=== PATIENT | male | born 1955 | race Caucasian/White ===

== ENCOUNTER 2016-07-04 16:02 | Inpatient (IN) | payer OTHER ==
[~2016-07-04] VITALS: Ht 170.2 cm; Wt 54.4 kg
--- NOTE | ~2016-07-04 | PR ---
[place], [place] PROGRESS NOTE NAME: TAYLOR HOLT UNIT #: [id number] ROOM: 405 DOCTOR: SPEEDY GONZALES MD BIRTHDATE: [birth year] DOS: 07/07/2016 SUBJECTIVE: The patient was seen and examined. He is awake and alert. He is in no acute distress. He states he feels well. He denied any complaints. I was called by the nurse this morning about his blood pressure as well as IV fluids and gave instructions to stop IV fluids and give clonidine p.r.n. Most recent blood pressure seemed better controlled. PHYSICAL EXAMINATION: VITAL SIGNS: Showed temperature 98.1, pulse 54, respiratory rate 20, blood pressure 135/78. HEENT: Shows no JDV. LUNGS: Clear. HEART: Normal S1, S2. No rub, thrill, or gallop. ABDOMEN: Soft, nontender. There is no organomegaly. EXTREMITIES: Showed no edema. SKIN: Showed no rash. LABORATORY DATA: A 24-hour urine collection was completed. Creatinine clearance was 21.2 mL per minute. Total volume was 3775 mL. Serum creatinine from today was 2.47. IMPRESSION AND PLAN: 1. Chronic kidney disease. The patient previously has been on dialysis; however, seems to have had improvement in renal function. His 24-hour urine collection places him at stage IV chronic kidney disease with excellent urine output. At this time, I did not think the patient should continue dialysis. He has compliance issues as well and has not had dialysis essentially in 1 week's time. I explained to him, he does not need to come to dialysis, but he will need to be followed up in the [facility] with Dr. Camp. The patient agreed to this plan and was very happy. I did notify the dialysis unit that he will no longer be needing dialysis at this time. 2. Hypertension. Continue medications. This seems to be better controlled. 3. Anemia. H and H is acceptable. The patient does not require erythropoietin stimulating agents at this time. 4. From a renal standpoint, the patient is acceptable for discharge. Again, he should follow up in our office with Dr. Camp in 1-2 weeks after discharge. [place], [place] PROGRESS NOTE NAME: TAYLOR HOLT UNIT #: [id number] ROOM: 405 DOCTOR: SPEEDY GONZALES MD BIRTHDATE: [birth year] SPEEDY GONZALES MD CM:PNTRANS 1427 0025 SPEEDY GONZALES MD 07/08/16 0025 interface
--- NOTE | ~2016-07-04 | CON ---
[place], [place] REPORT OF CONSULTATION NAME: TAYLOR HOLT UNIT #: [id number] ROOM: 405 DOCTOR: SPEEDY GONZALES MD BIRTHDATE: [birth year] DOS: 07/05/2016 REASON FOR CONSULTATION: Management of dialysis/patient known to you. HISTORY OF PRESENT ILLNESS: This patient is a 61-year-old male who has a past medical history of end-stage renal disease, on hemodialysis Thursday, and Thursday at the [facility]. The patient is noncompliant. He was seen by our practice of [facility]. He has not had dialysis for about a week now apparently. It seems he was in his PCP's office and had a questionable syncopal episode. Apparently, he was drinking when he was in the office, smelled of alcohol, but I do not know the details. He was admitted for further evaluation. Apparently, the patient has been making urine. When had seen him, he was awake and alert, stated he felt well and had no complaints to me. He denied nausea, vomiting, diarrhea or shortness breath or chest pain. His significant other was in the room and apparently they were fighting before I went into the room. Security actually was en route to coming the room before I went in there. He appeared to be very calm, when I saw him. ALLERGIES: No known drug allergies. HOME MEDICATIONS: Included amlodipine, Coreg, Celexa, clonidine, Neurontin, hydralazine, meclizine, nicotine, Protonix, sodium bicarbonate, Restoril. PAST MEDICAL HISTORY: 1. End-stage renal disease, on hemodialysis Thursday, , Thursday. Details of this are not clear to me. It seems he has had stevv-bh-ilzogoo kidney injury and has been noncompliant. It seems he has been to dialysis center for quite some time now. 2. History of alcohol abuse. 3. Anemia. 4. C. diff colitis. 5. CHF. 6. Depression. 7. Chronic hyponatremia. 8. Esophageal cancer. 9. Depression. 10. Hepatitis C. 11. History of TIA. 12. Hypertension. 13. Multiple falls. 14. Peptic ulcer disease. 15. Pneumonia. 16. Appendectomy. 17. Cholecystectomy. 18. Partial gastrectomy. 19. Splenectomy. 20. Neck surgery. 21. Noncompliance. FAMILY HISTORY: Negative for chronic kidney disease, otherwise noncontributory. [place], [place] REPORT OF CONSULTATION NAME: TAYLOR HOLT UNIT #: [id number] ROOM: 405 DOCTOR: SPEEDY GONZALES MD BIRTHDATE: [birth year] SOCIAL HISTORY: The patient has a history of alcohol abuse as well as tobacco abuse. I am not clear if he has IV drug history. REVIEW OF SYSTEMS: As per HPI, otherwise a 10-point review of systems was reviewed and was negative. PHYSICAL EXAMINATION: VITAL SIGNS: Temperature is 97.9, pulse 54, respiratory rate 20, blood pressure 145/87. GENERAL: He is awake and alert, resting comfortably, in no acute distress. HEENT: Shows no JVD. Sclerae are anicteric. Mucous membranes are moist. Pharynx is clear. NECK: Supple. Trachea is midline. No neck lymphadenopathy. There is no thyromegaly. LUNGS: Diminished breath sounds. No appreciable wheezes. No tactile fremitus. He is not using accessory muscles of respiration. HEART: Normal S1, S2. No rub, no thrill, no gallop. ABDOMEN: Soft and nontender. There is no organomegaly or rigidity. There is no rebound or guarding. There is no CVA tenderness. EXTREMITIES: Showed no edema. There is no lower extremity lymphadenopathy. Distal pulses are 2+. SKIN: Showed no overt rash. There are no petechiae or purpura. Skin temperature is warm. NEUROLOGIC: He is awake, alert and following commands. Cranial nerves are intact. LABORATORY DATA: From yesterday showed a BUN of 24, creatinine of 2.6, sodium 129, potassium 4.1, CO2 of 21, calcium 8.1, albumin 3.0. IMPRESSION: 1. End-stage renal disease, on hemodialysis Thursday, and Thursday. 2. Questionable syncopal episode. 3. History of tobacco and alcohol abuse. 4. History of esophageal cancer. 5. Anemia. 6. Hypertension. 7. Noncompliance. PLAN: 1. We will obtain a 24-hour urine for creatinine clearance while the patient is in the hospital. He has not had dialysis in a week and labs were acceptable. He appears well compensated. 2. Watch sodium levels. 3. Continue regular meds. 4. Dose meds for current creatinine clearance. 5. The patient can be discharged from a renal standpoint once his 24-hour urine question has completed if he is otherwise stable. Thank you for this consultation. We will follow with you. [place], [place] REPORT OF CONSULTATION NAME: TAYLOR HOLT UNIT #: [id number] ROOM: 405 DOCTOR: CHRISTIAN ESTRADA,SPEEDY Tomas BIRTHDATE: [birth year] SPEEDY GONZALES MD CM:CONSTR:REPORT OF CONSULTATION 1528 07/06/16 1008 interface
--- NOTE | ~2016-07-04 | EKG ---
[place], [place] ELECTROCARDIOGRAM REPORT NAME: TAYLOR HOLT UNIT #: [id number] ROOM: 405 DOCTOR: ISABEL MORENO MD BIRTHDATE: [birth year] DOS: 07/08/2016 TIME: 16:49:33 RATE AND RHYTHM: Normal sinus rhythm at 60 beats per minute. MA interval 187 milliseconds. QRS duration 91 milliseconds, corrected QT interval is 530 milliseconds. QRS axis is 4. IMPRESSION: 1. Normal sinus rhythm. 2. Prolonged QT interval. 3. Ventricular premature complexes. IMPRESSION: 1. Abnormal EKG. 2. Clinical correlation needed. ISABEL MORENO MD CM:EKGRPT:ELECTROCARDIOGRAM REPORT 1209 1229 ISABEL MORENO MD
[~2016-07-04 16:02] MED LIST: AMLODIPINE BESY1 TAB PO; ANTIVERT/2525 MG PO; APRESOLINE25 MG PO; ASPIR 8181 MG PO; ATARAX,VISTARIL50 MG PO; B COMPLEX WITH1 EACH PO; CARAFATE1 G1 PO; CELEXA20 MG PO; CEPHALEXIN500 M1 PO; CIPRO500 MG PO; CLINDAMYCIN HC300 MG PO; CLONIDINE0.1 MG PO; COREG12.5 MG PO; COREG25 MG PO; COREG3.125 MG PO; FERROUS GLUCON325 M1 PO; FERROUS SULFAT325 M1 PO; FERROUS SULFAT325 MG PO; FLOMAX0.4 MG PO; HABITROL21 MG/24 H TD; HYDR25T PO; HYDRALAZINE HCL50 MG PO; HYDRALAZINE HYD50 MG PO; HYDROCHLOROTHIA25 M1 PO; HYDROCODON-ACETAMINO; HYDROCODONE BIT1 T11 PO; HYDROCODONE BIT1 T20 PO; HYDROXYZINE HCL50 MG PO; IBUPROFEN600 MG PO; KLOR-CON 1010 ME1 PO; KROGER NIC21 MG/24 H T; LASIX20 MG PO; LASIX40 MG PO; LISINOPRIL AND1 TA2 PO; LISINOPRIL20 MG PO; LISINOPRIL40 MG PO; LOPRESSOR25 MG PO; METOPROLOL SUCC25 M2 PO; MOTRIN400 MG PO; NATURE'S BLEND100 M2 PO; NEURONTIN100 MG PO; NICODERM C21 MG/24 H TD; NORCO 5-325 TA1 EACH PO; NORVASC10 MG PO; NORVASC2.5 MG PO; ONDANSETRON HYDR4 M1 PO; OXYBUTYNIN ER PO; OXYBUTYNIN5 MG PO; PANTOPRAZOLE40 MG PO; PERCOCET 325 MG1 TA2 PO; POTASSIUM CL MICRO PO; PREV ADMIT HOME MEDS; PRILOSEC40 MG PO; PROTONIX TR40 M1 PO; PROTONIX TR40 MG PO; PROTONIX40 MG PO; QUINAPRIL40 MG PO; RESTORIL7.5 M1 PO; SANTYL250 U/GM T; SERTRALINE HCL100 MG PO; SILVADENE,SSD C50 GM PO; SILVADENE,SSD C50 GM T; TRANDATE300 MG PO; TRAZODONE50 MG PO; VANCOMYCIN HCL PO; VICO75300 PO; VICODIN ES 7501 TA1 PO; VITAMIN B-11 TAB PO; ZOLOFT100 MG PO; Zofran4 MG PO; [UNRECOGNIZED DRUG - OTHER]; [UNRECOGNIZED DRUG - OTHER] TD
[2016-07-04 16:07] VITALS: BP 126/72
[2016-07-04] MEDS ORDERED: NICODERM C21 MG/24 H TD (16:14)
[2016-07-04] MEDS ORDERED: CELEXA20 MG PO (16:15)
[2016-07-04] MEDS ORDERED: AMINO ACID1 EACH PO (16:15)
[2016-07-04] MEDS ORDERED: NORCO 7.5-3251 EACH PO (16:15)
[2016-07-04] MEDS ORDERED: RESTORIL7.5 M1 PO (16:16)
[2016-07-04] MEDS ORDERED: PROTONIX40 MG PO (16:16)
[2016-07-04] MEDS ORDERED: NEURONTIN100 MG PO (16:16)
[2016-07-04] MEDS ORDERED: SODIUM BICARBO650 MG PO (16:16)
[2016-07-04] MEDS ORDERED: HYDRALAZINE HC100 MG PO (16:18)
[2016-07-04] MEDS ORDERED: MECLIZINE HCL25 M2 PO (16:18)
[2016-07-04] MEDS ORDERED: COREG25 MG PO (16:20)
[2016-07-04] MEDS ORDERED: AMLODIPINE BESY10 MG PO (16:20)
[2016-07-04] MEDS ORDERED: CLONIDINE HCL0.1 M1 PO (16:21)
[2016-07-04 17:06] LABS: BASO # 0.1 10*3/uL (0.0-0.1); BASO % 1.7 % (0.0-1.0); EOS # 0.4 10*3/uL (0.0-0.4); EOS % 6.9 % (1.0-4.0); HEMATOCRIT 35.9 % (42.0-52.0); HEMOGLOBIN 12.6 g/dl (14.0-18.0); IG # 0.1 10*3/uL (0.0-0.1); LYMPH # 1.6 10*3/uL (1.3-4.4); LYMPH % 29.3 % (27.0-41.0); MEAN CELL VOLUME 84.9 fl (80.0-94.0); MEAN CORPUSCULAR HGB 29.8 pg (27.0-31.0); MEAN CORPUSCULAR HGB CONC 35.1 g/dl (33.0-37.0); MEAN PLATELET VOLUME 11.9 fl (9.6-12.3); MONO # 0.6 10*3/uL (0.1-1.0); MONO % 10.9 % (3.0-9.0); NEUT # 2.7 10*3/uL (2.3-7.9); NEUT % 50.3 % (47.0-73.0); PLATELET COUNT AUTOMATED 164 10*3/uL (130-400); RED BLOOD COUNT 4.23 10*6/uL (4.50-5.90); RED CELL DISTRI WIDTH 15.8 % (0-14.5); WHITE BLOOD COUNT 5.3 10*3/uL (4.8-10.8)
[2016-07-04 17:14] LABS: INTERNATIONAL NORM RATIO 0.9 (2.0-3.5); PROTHROMBIN TIME 9.5 SECONDS (9.0-12.4)
[2016-07-04 17:23] LABS: BILIRUBIN, TOTAL 0.3 mg/dl (0.2-1.0); POTASSIUM 4.1 mmol/L (3.5-5.1); TOTAL PROTEIN 7.1 gm/dL (6.4-8.2)
[2016-07-04 17:34] VITALS: BP 150/75
[2016-07-04 18:29] VITALS: BP 141/75
[2016-07-04 21:07] VITALS: BP 120/73
[2016-07-04 21:43] LABS: CPK 31 U/L (39-308); LDH 120 U/L (87-241)
[2016-07-04 21:45] LABS: CKMB < 0.5 ng/ml (0.5-3.6)
[2016-07-04 21:56] VITALS: BP 156/86
[2016-07-05] VITALS: BP 159/92
[2016-07-05 09:53] LABS: BILIRUBIN NEGATIVE (NEGATIVE); BLOOD NEGATIVE (NEGATIVE); CLARITY CLEAR (CLEAR); COLOR YELLOW (YELLOW); GLUCOSE NEGATIVE (NEGATIVE); KETONE NEGATIVE (NEGATIVE); LEUKO ESTERASE NEGATIVE (NEGATIVE); NITRITE NEGATIVE (NEGATIVE); PROTEIN 2+ (NEGATIVE); SPECIFIC GRAVITY 1.015 (1.005-1.030); UROBILINOGEN 0.2 E.U./dl (0.2-1.0)
[2016-07-05 10:03] LABS: URINE TP/CRE RATIO 3.5 (<0.21)
[2016-07-05 11:02] LABS: EPITHELIAL CELLS 0-2; RBC 0-2 rbc/hpf (0-2)
[2016-07-05 12:00] VITALS: BP 145/87
[2016-07-05 16:00] VITALS: BP 163/96
[2016-07-05 20:00] VITALS: BP 151/88
[2016-07-06] VITALS: BP 164/85
[2016-07-06 08:00] VITALS: BP 194/84
[2016-07-06 12:45] VITALS: BP 139/75
[2016-07-06 16:00] VITALS: BP 125/75
[2016-07-06 20:00] VITALS: BP 156/81
[2016-07-07] VITALS: BP 155/83
[2016-07-07 03:59] VITALS: BP 188/89
[2016-07-07 08:00] VITALS: BP 172/86
[2016-07-07 12:00] VITALS: BP 135/78
[2016-07-07 16:00] VITALS: BP 178/90
[2016-07-07 20:00] VITALS: BP 135/76
[2016-07-08] VITALS: BP 146/82
[2016-07-08 05:42] LABS: ALBUMIN 2.7 gm/dl (3.1-4.5); BILIRUBIN, TOTAL 0.3 mg/dl (0.2-1.0); POTASSIUM 5.5 mmol/L (3.5-5.1); TOTAL PROTEIN 6.1 gm/dL (6.4-8.2)
[2016-07-08 08:00] VITALS: BP 133/94
[2016-07-08] MEDS ORDERED: NORCO 7.5-3251 EACH PO (14:52)
== END 2016-07-08 15:03 | disposition home or self-care (01) | DRG 896 ==
LOC: ED 16:02 → 4E 19:05 → EDHOLD 19:05 → 4E 19:31
PROVIDERS: Internal Medicine; Internal Medicine Nephrology; Nurse Practitioner Family
DX: F10.129 Alcohol abuse with intoxication, unspecified (principal); N18.6 End stage renal disease; E43 Unspecified severe protein-calorie malnutrition; I13.2 Hypertensive heart and chronic kidney disease with heart failure and with stage 5 chronic kidney disease, or end stage renal disease; E87.1 Hypo-osmolality and hyponatremia; Y90.9 Presence of alcohol in blood, level not specified; I50.9 Heart failure, unspecified; E87.8 Other disorders of electrolyte and fluid balance, not elsewhere classified; R07.89 Other chest pain; D64.9 Anemia, unspecified; I95.1 Orthostatic hypotension; E87.6 Hypokalemia; G90.8 Other disorders of autonomic nervous system; Z99.2 Dependence on renal dialysis; Z86.73 Personal history of transient ischemic attack (TIA), and cerebral infarction without residual deficits; Z90.49 Acquired absence of other specified parts of digestive tract; Z90.3 Acquired absence of stomach [part of]; Z90.81 Acquired absence of spleen; Z82.49 Family history of ischemic heart disease and other diseases of the circulatory system; Z83.3 Family history of diabetes mellitus; Z79.899 Other long term (current) drug therapy; Z91.19 Patient's noncompliance with other medical treatment and regimen

== ENCOUNTER 2016-07-18 16:02 | Inpatient (IN) | payer OTHER ==
[~2016-07-18] VITALS: Ht 175.2 cm; Wt 54.0 kg
[2016-07-18] VITALS (10 sets, daily range): BP systolic 87–162; BP diastolic 52–79
--- NOTE | ~2016-07-18 | CON ---
[place], [place] REPORT OF CONSULTATION NAME: TAYLOR HOLT UNIT #: [id number] ROOM: 406 DOCTOR: SPEEDY GONZALES MD BIRTHDATE: [birth year] DOS: 07/19/2016 NEPHROLOGY CONSULTATION REASON FOR CONSULTATION: Chronic kidney disease/patient known to you. HISTORY OF PRESENT ILLNESS: The patient is a 61-year-old male. He is known to our service. He has a history of chronic kidney disease and is on dialysis for nearly 2 years. He does have an upper extremity AV graft. He has a history of hypertension and alcohol abuse. He also has known noncompliance. Recently he was in the hospital few weeks ago. As noted, he had missed the number of dialysis sessions, but had a fairly stable creatinine during his hospital stay with excellent urine output. A 24-hour urine collection was performed during that hospital stay and was determined that the patient did not require dialysis due to a creatinine clearance that was greater than 20. He was instructed to follow up in the office with Dr. Camp. Apparently, he was sent to the hospital yesterday after he had outpatient labs which showed potassium of 7.3 with details unclear to me. The patient was somewhat confused and does not remember exactly what happened. Apparently he had elevated alcohol level when he presented. He has had some issues with dizziness, but this is somewhat of chronic issue. No chest pain, nausea, vomiting or diarrhea. I was called yesterday with concerns, he may need dialysis; however, the repeat potassium is 5.5. The patient's creatinine; however, was elevated from his baseline. Fluids were started with bicarb and his potassium this morning was 5.6. He states he feels great currently. His creatinine this morning was 3.48. He did have a metabolic acidosis and hyponatremia both of those have resolved. PAST MEDICAL HISTORY: 1. Chronic kidney disease, previously on hemodialysis as noted above. 2. History of alcohol abuse. 3. Anemia. 4. C difficile colitis. 5. CHF. 6. Depression. 7. Chronic hyponatremia. 8. Esophageal cancer. 9. Depression. 10. Hepatitis C. 11. History of TIA. 12. Hypertension. 13. Multiple falls. 14. Peptic ulcer disease. 15. Pneumonia. 16. Appendectomy. 17. Cholecystectomy. 18. Partial gastrectomy. 19. Splenectomy. 20. Neck surgery. [place], [place] REPORT OF CONSULTATION NAME: TAYLOR HOLT UNIT #: [id number] ROOM: 406 DOCTOR: SPEEDY GONZALES MD BIRTHDATE: [birth year] 21. Noncompliance. FAMILY HISTORY: Negative for chronic kidney disease otherwise noncontributory. SOCIAL HISTORY: He has a history of alcohol abuse as well as tobacco abuse. REVIEW OF SYSTEMS: As per HPI, otherwise a 10-point review of systems was reviewed and was negative. PHYSICAL EXAMINATION: VITAL SIGNS: Temperature is 96.4, pulse , respiratory rate 14, blood pressure 172/93. GENERAL: He is awake, alert, resting comfortably, no acute distress. HEENT: Shows no JVD. Sclerae are anicteric. Mucous membranes are moist. Pharynx was clear. NECK: Supple. Trachea is midline. There is no lymphadenopathy. There is no thyromegaly. LUNGS: Diminished breath sounds, appreciable wheeze. He is not using accessory muscles of respiration. HEART: Normal S1, S2. No rub, thrill or gallop. ABDOMEN: Soft, nontender. There is no organomegaly or rigidity. There is no rebound or guarding. There is no CVA tenderness. EXTREMITIES: He has had no edema. There is no lower extremity lymphadenopathy. Distal pulses are 2+. SKIN: Showed no rash. There are no petechiae or purpura. Skin temperature was warm. NEUROLOGIC: He is awake, alert and following commands. Cranial nerves were intact. DIAGNOSTIC DATA: Reviewed. Hemoglobin 11.4, white count of 5.3, platelets of 141. BUN 57, creatinine 3.5, sodium 134, potassium 5.6, CO2 of 23, calcium 8.4, phosphorus 4.2. IMPRESSION: 1. Acute on chronic kidney disease. The patient has a baseline creatinine that seems to be in the low 2s range. The etiology of his acute kidney injury seems most consistent with prerenal etiology with a possible element of the ischemic acute tubular necrosis due to transient hypotension. 2. Hyperkalemia, multifactorial etiology. 3. Hypotension, which has resolved. 4. Anemia. 5. Alcohol abuse. 6. Hyponatremia, which has resolved. PLAN: 1. Continue IV fluids, can be changed to normal saline at this point since his bicarb deficit has resolved. 2. Place on a potassium restriction. 3. Dose meds per current creatinine clearance. 4. Strict I's and O's. Avoid hypotension. His blood pressure has improved and [place], [place] REPORT OF CONSULTATION NAME: TAYLOR HOLT UNIT #: [id number] ROOM: [facility] DOCTOR: CHRISTIAN ESTRADA,SPEEDY Tomas BIRTHDATE: [birth year] he is now hypertensive. Medications have been resumed. 5. Continue supportive care. 6. I did not see any need for dialysis at this time. We will continue to monitor his progress. Thank you for this consultation. We will follow with you. SPEEDY GONZALES MD CM:CONSTR:REPORT OF CONSULTATION 1422 08/25/16 1305 interface
--- NOTE | ~2016-07-18 | CON ---
[place], [place] REPORT OF CONSULTATION NAME: TAYLOR HOLT UNIT #: [id number] ROOM: 406 DOCTOR: ELIGIO GUADARRAMA MD BIRTHDATE: [birth year] DOS: 07/20/2016 The patient was seen on 07/20/2016. CHIEF COMPLAINT: Confusion. CONSULTING DOCTOR: Dr. Gordon. REASON FOR CONSULTATION: Rule out sepsis. HISTORY OF PRESENT ILLNESS: This is a 61-year-old man who was admitted with high potassium level and altered mental status. He was seen by his primary care doctor, Dr. Gordon and had labs drawn for a potassium level which was 7.3. He has a history of CKD and was on dialysis for approximately a year and a half. He was recently taken off his dialysis as he was making enough urine output and was told to stop dialysis 2 weeks ago. He was told to completely avoid alcohol, but he presents with confusion and elevated blood alcohol, was also found to be hypothermic and hypotensive, needing a brief ICU stay. He had a full infectious disease workup at that time and ID was consulted. PAST MEDICAL HISTORY: Positive for history of end-stage renal disease, hypertension, tobacco abuse, GERD, depression, esophageal cancer, hepatitis C, peptic ulcer disease. PAST SURGICAL HISTORY: Appendectomy, cholecystectomy, partial gastrectomy, splenectomy, left upper extremity AV fistula creation, noncompliance. FAMILY HISTORY: No coronary artery disease or diabetes. SOCIAL HISTORY: He drinks alcohol daily and smokes about a pack per day for the last 35 years. REVIEW OF SYSTEMS: A 14-review of systems otherwise negative unless otherwise specified in the HPI. PHYSICAL EXAMINATION: VITAL SIGNS: Showed a temperature of 98, heart rate of 66, blood pressure of 138/80, respiratory rate of 18, pulse ox of 95 on room air. GENERAL APPEARANCE: Awake, alert, oriented to time, place, and person, sitting up, eating lunch. ORAL CAVITY: Moist, no thrush, intact. NECK: Supple, no JVD, no lymphadenopathy. HEART: Regular rate and rhythm. S1, S2 normal. No murmurs, gallops or rubs. LUNGS: Clear to auscultation. Equal air entry bilaterally. ABDOMEN: Soft, nontender, nondistended. Bowel sounds heard. EXTREMITIES: Warm to touch. Pulses palpated bilaterally equal. Left upper extremity fistula intact without evidence of infection. LABORATORY DATA: Reviewed from [place] 14, WBC of 5.3, hemoglobin 11.4, [place], [place] REPORT OF CONSULTATION NAME: TAYLOR HOLT UNIT #: [id number] ROOM: 406 DOCTOR: ELIGIO GUADARRAMA MD BIRTHDATE: [birth year] platelets were 141. Chemistry showing sodium from today and potassium from today is pending. BUN was 57 on July 19 and creatinine was 3.48 on July 19. Microbiology: Blood cultures showing no growth so far. Lactic acid was within normal limits. Chest x-ray did not show any acute infiltrates or pneumonia. ASSESSMENT AND PLAN: 1. Altered mental status likely secondary to alcohol toxicity and hyperkalemia, which the mental status is back to his baseline and he is awake, alert, and oriented to time, place and person. I do not think he had an infectious etiology causing confusion, recommend discontinuing antibiotics today with followup as needed. 2. Chronic kidney disease with hyperkalemia, improving. Nephrology following. Please call me in case of questions. Thank you for this consultation. ELIGIO GUADARRAMA MD CM:CONSTR:REPORT OF CONSULTATION 1454 07/21/16 1135 interface
--- NOTE | ~2016-07-18 | PR ---
[place], [place] PROGRESS NOTE NAME: TAYLOR HOLT UNIT #: [id number] ROOM: 406 DOCTOR: JILLIAN DÍAZ MD BIRTHDATE: [birth year] DOS: 07/21/2016 NEPHROLOGY PROGRESS NOTE SUBJECTIVE: The patient was seen and examined. He is awake and alert, sitting upright, eating and drinking well. IV fluids at 70 mL an hour, continue. He denies any nausea, vomiting, fevers and chills. He understands he needs to stop his alcohol abuse. OBJECTIVE: VITAL SIGNS: He is afebrile, heart rates are in the 60s-70s, respiratory rate 18-20, blood pressures 140s-160s over 70s-80s, pulse ox 90-99% on room air. GENERAL: He is awake, alert and oriented, in no acute distress, pleasant mood and affect. Speech is clear and cogent. LUNGS: Clear bilaterally. CARDIOVASCULAR: Rate regular. No audible rub. No palpable lift or heave. ABDOMEN: Soft. EXTREMITIES: Left arm AV graft has a positive thrill and bruit. Periphery, without extremities of edema. SKIN: Otherwise, without rash. LABORATORIES AND DIAGNOSTICS: White blood cell count 9, hemoglobin 11.2, platelets 111. Sodium 137, potassium 5.1, chloride 103, bicarb 26, BUN 43, creatinine 3.05 down from 3.2 and 3.86, albumin 3. ASSESSMENT AND PLAN: Acute on chronic kidney injury, baseline creatinine now into the low 2s, potentially mid 2s. IV fluids can be stopped and p.o. intake increased as tolerated. Low potassium diet was recommended for the patient. Limitation of his alcohol abuse is the most important thing for his long-term success. His anemia is fairly stable, follow H and H. His hypotension has resolved and he usually has significant hypertension exacerbated when he is drinking and withdrawing. His metabolic acidosis has been improved since his bicarb drip has been now since discontinued. [place], [place] PROGRESS NOTE NAME: TAYLOR HOLT UNIT #: [id number] ROOM: 406 DOCTOR: JILLIAN DÍAZ MD BIRTHDATE: [birth year] JILLIAN DÍAZ MD CM:PNTRANS 1534 5 JILLIAN DÍAZ MD 07/22/16224 interface
--- NOTE | ~2016-07-18 | PR ---
[place], [place] PROGRESS NOTE [id number] UNIT #: [id number] ROOM: 406 DOCTOR: DESTINEE GONZALEZ MD BIRTHDATE: [birth year] DOS: 07/20/2016 He has been admitted to the hospital with renal failure and hyperkalemia and hypotension. At present, he is feeling much better. He is not dizzy. He is conscious, alert and oriented. He is not in any distress. OBJECTIVE: VITAL SIGNS: His blood pressure today is high at 171/87, pulse is 69, respirations 18, temperature 99.2. HEART: Irregular. CHEST: Clear. ABDOMEN: Soft. LABORATORY DATA: CK-MB and troponin levels are normal. The patient is improving. DESTINEE GONZALEZ MD CM:PNTRANS 1214 0252 DESTINEE GONZALEZ MD 07/21/16 0751 interface
--- NOTE | ~2016-07-18 | PR ---
[place], [place] PROGRESS NOTE [id number] UN[facility] #: [id number] ROOM: 406 DOCTOR: SPEEDY GONZALES MD BIRTHDATE: [birth year] DOS: 07/20/2016 SUBJECTIVE: The patient was seen and examined. He is awake and alert and feels well. He is out of the ICU. Denies nausea or vomiting or diarrhea. He denies fevers or chills. PHYSICAL EXAMINATION: VITAL SIGNS: Temperature 98, pulse 66, respiratory rate 18, blood pressure 138/80. HEENT: Shows no JVD. LUNGS: Clear. HEART: Normal S1, S2. No rub, thrill or gallop. ABDOMEN: Soft and nontender. There is no organomegaly. EXTREMITIES: Showed no edema. SKIN: Show no rash. LABORATORY DATA: Not performed and was pending. IMPRESSION: 1. Acute on chronic kidney disease with a baseline creatinine that seems to be in the low 2s range. This seems likely prerenal in nature. Labs were not ordered today. We will check now. Continue IV fluids. We will change to normal saline at 70 mL per hour. 2. Metabolic acidosis. The bicarb drip will be discontinued since his bicarb deficit has resolved. 3. Hyperkalemia, which is multifactorial in etiology. Labs will need to be rechecked. 4. Hypotension. This has resolved. 5. Anemia. Follow H and H. SPEEDY GONZALES MD CM:PNTRANS 1414 0747 SPEEDY GONZALES MD 07/21/16 0745 interface
--- NOTE | ~2016-07-18 | PR ---
[place], [place] PROGRESS NOTE NAME: TAYLOR HOLT [facility] #: [id number] UNIT #: [id number] ROOM: 406 DOCTOR: DESTINEE GONZALEZ MD BIRTHDATE: [birth year] DOS: 07/19/2016 HISTORY OF PRESENT ILLNESS: The patient who has been admitted to the hospital with renal failure with hyperkalemia with hypotension and feeling of dizziness and he is getting hemodialysis and he is feeling better now and he is not in any distress and no chest pain, no difficulty in breathing and he has history of chronic renal failure, history of alcohol abuse in the past and was on hemodialysis before but recently he was out of it because he could produce his own urine and he has history of hypochromic anemia, hypertension, was doing fairly stable, but he started drinking again which put him out of the gear. He was advised in the past to stop drinking. His cardiac enzymes are normal, does not show any evidence of any myocardial infarction. PHYSICAL EXAMINATION: VITAL SIGNS: His blood pressure is 146/76, pulse is 81, respirations 18, temperature 97.5. CHEST: Clear. HEART: Regular. ABDOMEN: Soft. The patient will be transferred to [facility]. Thank you very much. DESTINEE GONZALEZ MD CM:HAYLEE 1237 [id number] DESTINEE GONZALEZ MD 07/20/16 0611 interface
[~2016-07-18 16:02] MED LIST changes: +AMINO ACID1 EACH PO; +AMLODIPINE BESY10 MG PO; +CLONIDINE HCL0.1 M1 PO; +HYDRALAZINE HC100 MG PO; +MECLIZINE HCL25 M2 PO; +NORCO 7.5-3251 EACH PO; +SODIUM BICARBO650 MG PO
[2016-07-18 17:56] LABS: BASO # 0.1 10*3/uL (0.0-0.1); BASO % 1.1 % (0.0-1.0); EOS # 0.8 10*3/uL (0.0-0.4); EOS % 12.4 % (1.0-4.0); HEMATOCRIT 31.3 % (42.0-52.0); HEMOGLOBIN 10.7 g/dl (14.0-18.0); LYMPH # 1.6 10*3/uL (1.3-4.4); LYMPH % 25.2 % (27.0-41.0); MEAN CELL VOLUME 89.7 fl (80.0-94.0); MEAN CORPUSCULAR HGB 30.7 pg (27.0-31.0); MEAN CORPUSCULAR HGB CONC 34.2 g/dl (33.0-37.0); MEAN PLATELET VOLUME 13.1 fl (9.6-12.3); MONO # 0.7 10*3/uL (0.1-1.0); NEUT # 3.1 10*3/uL (2.3-7.9); NEUT % 49.8 % (47.0-73.0); PLATELET COUNT AUTOMATED 137 10*3/uL (130-400); RED BLOOD COUNT 3.49 10*6/uL (4.50-5.90); RED CELL DISTRI WIDTH 16.9 % (0-14.5); WHITE BLOOD COUNT 6.2 10*3/uL (4.8-10.8)
[2016-07-18 18:03] LABS: INTERNATIONAL NORM RATIO 0.9 (2.0-3.5); PROTHROMBIN TIME 9.7 SECONDS (9.0-12.4)
[2016-07-18 18:13] LABS: ALBUMIN 3.2 gm/dl (3.1-4.5); ALKALINE PHOSPHATASE 143 U/L (45-117); BILIRUBIN, TOTAL 0.3 mg/dl (0.2-1.0); BUN 55 mg/dl (7-24); CARBON DIOXIDE 15 mmol/L (21-32); CHLORIDE 100 mmol/L (98-107); CKMB < 0.5 ng/ml (0.5-3.6); CPK 56 U/L (39-308); EST GLOM FILT AFRICAN AMERICAN 19 ml/min; GLUCOSE 68 mg/dL (65-99); POTASSIUM 5.5 mmol/L (3.5-5.1); SGOT/AST 28 IU/L (3-35); SGPT/ALT 23 U/L (12-78); SODIUM 128 mmol/L (136-145); TOTAL PROTEIN 7.2 gm/dL (6.4-8.2); TROPONIN I < 0.015 ng/ml (<0.5)
[2016-07-18 21:49] LABS: BILIRUBIN NEGATIVE (NEGATIVE); BLOOD NEGATIVE (NEGATIVE); CLARITY CLEAR (CLEAR); COLOR YELLOW (YELLOW); GLUCOSE NEGATIVE (NEGATIVE); KETONE NEGATIVE (NEGATIVE); LEUKO ESTERASE NEGATIVE (NEGATIVE); NITRITE NEGATIVE (NEGATIVE); PROTEIN 1+ (NEGATIVE); UROBILINOGEN 0.2 E.U./dl (0.2-1.0)
[2016-07-18 21:59] LABS: MUCOUS 1+; URINE REFLEX COMMENT NO (NO)
[2016-07-19] VITALS (8 sets, daily range): BP systolic 104–172; BP diastolic 64–96
[2016-07-19 00:53] LABS: CPK 47 U/L (39-308)
[2016-07-19 00:55] LABS: TROPONIN I < 0.015 ng/ml (<0.5)
[2016-07-19 06:12] LABS: CKMB 0.8 ng/ml (0.5-3.6)
[2016-07-19 06:14] LABS: BASO # 0.1 10*3/uL (0.0-0.1); BASO % 1.1 % (0.0-1.0); CPK 30 U/L (39-308); EOS # 0.5 10*3/uL (0.0-0.4); EOS % 9.3 % (1.0-4.0); HEMATOCRIT 32.6 % (42.0-52.0); HEMOGLOBIN 11.4 g/dl (14.0-18.0); LYMPH # 0.9 10*3/uL (1.3-4.4); LYMPH % 16.4 % (27.0-41.0); MEAN CORPUSCULAR HGB 29.9 pg (27.0-31.0); MEAN PLATELET VOLUME 13.1 fl (9.6-12.3); MONO # 0.4 10*3/uL (0.1-1.0); MONO % 8.3 % (3.0-9.0); NEUT # 3.4 10*3/uL (2.3-7.9); NEUT % 64.3 % (47.0-73.0); PLATELET COUNT AUTOMATED 141 10*3/uL (130-400); RED BLOOD COUNT 3.81 10*6/uL (4.50-5.90); RED CELL DISTRI WIDTH 15.9 % (0-14.5); TROPONIN I < 0.015 ng/ml (<0.5); WHITE BLOOD COUNT 5.3 10*3/uL (4.8-10.8)
[2016-07-19 06:19] LABS: MEAN CELL VOLUME 85.6 fl (80.0-94.0)
[2016-07-19 06:25] LABS: BILIRUBIN, TOTAL 0.3 mg/dl (0.2-1.0); MAGNESIUM 2.2 mg/dL (1.5-2.1); PHOSPHOROUS 4.2 mg/dL (2.5-4.9); POTASSIUM 5.6 mmol/L (3.5-5.1); TOTAL PROTEIN 6.3 gm/dL (6.4-8.2)
[2016-07-19 06:27] LABS: INTERNATIONAL NORM RATIO 0.9 (2.0-3.5); PROTHROMBIN TIME 9.7 SECONDS (9.0-12.4)
[2016-07-19 07:13] LABS: FOLIC ACID 4.62 ng/mL (>5.38); VITAMIN D, 25-HYDROXY 12.1 ng/mL (30-100)
[2016-07-19 12:14] LABS: CKMB 0.8 ng/ml (0.5-3.6)
[2016-07-19 12:23] LABS: CPK 47 U/L (39-308); TROPONIN I < 0.015 ng/ml (<0.5)
[2016-07-20] VITALS: BP 171/87
[2016-07-20 12:00] VITALS: BP 138/80
[2016-07-20 14:47] LABS: ALBUMIN 2.8 gm/dl (3.1-4.5); PHOSPHOROUS 3.6 mg/dL (2.5-4.9); POTASSIUM 5.3 mmol/L (3.5-5.1)
[2016-07-20 16:00] VITALS: BP 158/82; BP 180/86
[2016-07-20 20:00] VITALS: BP 162/78; BP 167/98
[2016-07-21] VITALS: BP 172/89
[2016-07-21 04:00] VITALS: BP 145/74
[2016-07-21 08:00] VITALS: BP 130/92
[2016-07-21 12:00] VITALS: BP 150/80
[2016-07-21 14:02] LABS: BASO # 0.1 10*3/uL (0.0-0.1); BASO % 1.4 % (0.0-1.0); EOS # 0.9 10*3/uL (0.0-0.4); EOS % 10.4 % (1.0-4.0); HEMOGLOBIN 11.2 g/dl (14.0-18.0); LYMPH # 1.4 10*3/uL (1.3-4.4); LYMPH % 15.3 % (27.0-41.0); MEAN CELL VOLUME 86.5 fl (80.0-94.0); MEAN CORPUSCULAR HGB 30.3 pg (27.0-31.0); MONO # 0.5 10*3/uL (0.1-1.0); NEUT % 66.5 % (47.0-73.0); PLATELET COUNT AUTOMATED 111 10*3/uL (130-400); RED CELL DISTRI WIDTH 15.9 % (0-14.5)
[2016-07-21 14:18] LABS: BILIRUBIN, TOTAL 0.3 mg/dl (0.2-1.0); POTASSIUM 5.1 mmol/L (3.5-5.1); TOTAL PROTEIN 6.7 gm/dL (6.4-8.2)
[2016-07-21 16:00] VITALS: BP 180/88
[2016-07-21 20:00] VITALS: BP 174/97
[2016-07-22] VITALS: BP 157/81
[2016-07-22 06:22] LABS: BASO # 0.1 10*3/uL (0.0-0.1); BASO % 1.7 % (0.0-1.0); EOS # 0.9 10*3/uL (0.0-0.4); EOS % 13.5 % (1.0-4.0); HEMATOCRIT 29.5 % (42.0-52.0); LYMPH # 1.4 10*3/uL (1.3-4.4); LYMPH % 19.8 % (27.0-41.0); MEAN CELL VOLUME 86.5 fl (80.0-94.0); MEAN CORPUSCULAR HGB 29.3 pg (27.0-31.0); MEAN CORPUSCULAR HGB CONC 33.9 g/dl (33.0-37.0); MEAN PLATELET VOLUME 14.2 fl (9.6-12.3); MONO # 0.7 10*3/uL (0.1-1.0); MONO % 9.9 % (3.0-9.0); NEUT # 3.7 10*3/uL (2.3-7.9); NEUT % 54.5 % (47.0-73.0); PLATELET COUNT AUTOMATED 98 10*3/uL (130-400); RED BLOOD COUNT 3.41 10*6/uL (4.50-5.90); RED CELL DISTRI WIDTH 15.8 % (0-14.5); WHITE BLOOD COUNT 6.9 10*3/uL (4.8-10.8)
[2016-07-22 06:36] LABS: ALBUMIN 2.9 gm/dl (3.1-4.5); BILIRUBIN, TOTAL 0.3 mg/dl (0.2-1.0); POTASSIUM 4.8 mmol/L (3.5-5.1); TOTAL PROTEIN 6.4 gm/dL (6.4-8.2)
[2016-07-22 08:00] VITALS: BP 148/88
[2016-07-22] MEDS ORDERED: D-1000 185 MG-11 TAB PO (10:40)
[2016-07-22] MEDS ORDERED: PHARMASSURE FO0.4 MG PO (10:40)
[2016-07-22 12:00] VITALS: BP 154/73
== END 2016-07-22 15:24 | disposition home or self-care (01) | DRG 871 ==
LOC: ED 16:02 → 4E 18:44 → EDHOLD 18:44 → 4E 20:16 → ICCU 21:21 → 4E 07-19 14:36
PROVIDERS: Emergency Medicine; Hospitalist; Internal Medicine Nephrology
DX: A41.9 Sepsis, unspecified organism (principal); R65.21 Severe sepsis with septic shock; G93.41 Metabolic encephalopathy; I13.2 Hypertensive heart and chronic kidney disease with heart failure and with stage 5 chronic kidney disease, or end stage renal disease; F10.121 Alcohol abuse with intoxication delirium; N18.6 End stage renal disease; E87.1 Hypo-osmolality and hyponatremia; E44.0 Moderate protein-calorie malnutrition; Z68.1 Body mass index [BMI] 19.9 or less, adult; N17.9 Acute kidney failure, unspecified; E87.5 Hyperkalemia; Z99.2 Dependence on renal dialysis; Z79.899 Other long term (current) drug therapy; Y90.9 Presence of alcohol in blood, level not specified; E55.9 Vitamin D deficiency, unspecified; E53.8 Deficiency of other specified B group vitamins; K21.9 Gastro-esophageal reflux disease without esophagitis; I50.9 Heart failure, unspecified; Z86.73 Personal history of transient ischemic attack (TIA), and cerebral infarction without residual deficits; Z90.49 Acquired absence of other specified parts of digestive tract; Z90.81 Acquired absence of spleen; Z90.3 Acquired absence of stomach [part of]; Z98.890 Other specified postprocedural states; Z82.49 Family history of ischemic heart disease and other diseases of the circulatory system; Z83.3 Family history of diabetes mellitus; Z87.11 Personal history of peptic ulcer disease

== ENCOUNTER → 2016-07-29 | Outpatient (CLI) | payer OTHER ==
[~2016-07-29] MED LIST changes: +CALCIUM ACETAT667 MG PO; +D-1000 185 MG-11 TAB PO; +PHARMASSURE FO0.4 MG PO
[2016-07-29 11:26] LABS: BASO # 0.1 10*3/uL (0.0-0.1); BASO % 1.8 % (0.0-1.0); EOS # 1.4 10*3/uL (0.0-0.4); EOS % 18.7 % (1.0-4.0); HEMATOCRIT 33.6 % (42.0-52.0); HEMOGLOBIN 11.3 g/dl (14.0-18.0); LYMPH # 1.4 10*3/uL (1.3-4.4); LYMPH % 18.6 % (27.0-41.0); MEAN CELL VOLUME 87.7 fl (80.0-94.0); MEAN CORPUSCULAR HGB 29.5 pg (27.0-31.0); MEAN CORPUSCULAR HGB CONC 33.6 g/dl (33.0-37.0); MEAN PLATELET VOLUME 12.9 fl (9.6-12.3); MONO % 13.4 % (3.0-9.0); NEUT # 3.4 10*3/uL (2.3-7.9); NEUT % 47.1 % (47.0-73.0); PLATELET COUNT AUTOMATED 250 10*3/uL (130-400); RED BLOOD COUNT 3.83 10*6/uL (4.50-5.90); RED CELL DISTRI WIDTH 15.4 % (0-14.5); WHITE BLOOD COUNT 7.3 10*3/uL (4.8-10.8)
[2016-07-29 11:54] LABS: ALBUMIN 3.9 gm/dl (3.1-4.5); PHOSPHOROUS 5.2 mg/dL (2.5-4.9); POTASSIUM 5.8 mmol/L (3.5-5.1)
[2016-07-29 12:49] LABS: PTH INTACT 151.1 pg/mL (14.0-72.0); VITAMIN D, 25-HYDROXY 19.5 ng/mL (30-100)
[2016-07-29 13:19] LABS: FERRITIN 1752.3 ng/mL (22.0-322.0)
== END | disposition home or self-care (01) ==
LOC: LAB 11:04
PROVIDERS: Internal Medicine Nephrology
DX: N18.4 Chronic kidney disease, stage 4 (severe) (principal); E87.1 Hypo-osmolality and hyponatremia; D63.1 Anemia in chronic kidney disease; N25.81 Secondary hyperparathyroidism of renal origin

== ENCOUNTER 2016-09-24 15:27 | Inpatient (IN) | payer OTHER ==
[~2016-09-24] VITALS: Ht 170.2 cm; Wt 51.9 kg
--- NOTE | ~2016-09-24 | CON ---
[place], [place] REPORT OF [facility]ATION [id number] UNIT #: [id number] ROOM: 410 DOCTOR: DEMETRI ZHENG MD BIRTHDATE: [birth year] DOS: HISTORY OF PRESENT ILLNESS: The patient admitted with significant dizziness. The patient presented with a history of heavy tobacco abuse, presented to the Emergency Room, was hypotensive and orthostatic, blood pressure was 90/60. The patient is a heavy smoker. The patient felt like passing out and he had a near syncopal episode. He has been having dizzy spells. The patient was given IV fluids and he is doing much better now. Chest x-ray showed no abnormalities. EKG shows no acute abnormality. He is a chronic dialysis patient and last treatment was on 09/22. The patient's blood pressure as mentioned is significantly better. No chest pain, no shortness of breath, no palpitations. PAST MEDICAL HISTORY: Significant for chronic renal failure, history of fluid overload, hepatitis C, history of TIA, hypertension, peptic ulcer disease, protein calorie malnutrition. SURGICAL HISTORY: Cholecystectomy, appendectomy, gastrectomy, splenectomy. SOCIAL HISTORY: Chronic alcohol abuse. He had not used any drugs. Chronic tobacco abuse. FAMILY HISTORY: Positive for coronary artery disease. HOME MEDICATIONS: The patient is on large dose of antihypertensive, amlodipine, carvedilol, Lasix, hydralazine, meclizine, nicotine, sodium bicarbonate. REVIEW OF SYSTEMS: CONSTITUTIONAL: No fever, no chills. HEENT: No visual disturbance. CARDIOVASCULAR: No chest pain, no shortness of breath. RESPIRATORY: No shortness of breath. ABDOMEN: No abdominal pain. NEUROLOGIC: Had a near syncopal episode. PHYSICAL EXAMINATION: VITAL SIGNS: Blood pressure initially was low and now it is normal, 130/70. The patient was orthostatic. HEENT: Unremarkable. NECK: Supple, no JVD. LUNGS: Diminished breath sounds. HEART: Sounds are regular. ABDOMEN: Soft, nontender. NEUROLOGICAL: Stable. LABORATORY DATA: Sodium 130, potassium 4.7, creatinine is 3.6. CPK-MB, troponins are all negative. Hemoglobin 10.6, hematocrit within normal limits. DIAGNOSTIC DATA: Chest x-ray showed no acute abnormalities. CT of the head, no acute intracranial process. [place], [place] REPORT OF CONSULTATION NAME: TAYLOR HOLT UNIT #: [id number] ROOM: 410 DOCTOR: DEMETRI ZHENG MD BIRTHDATE: [birth year] IMPRESSION: Near syncopal episode, orthostatic hypotension, chronic renal failure, alcoholic intoxication, hyponatremia, end-stage renal disease. RECOMMENDATIONS: Bradycardia. Continue the present medications. Monitor the heart rate closely. Hold Coreg and EKG shows sinus with slightly QT prolongation, decrease the dosage of Coreg to 12.5 b.i.d. and also maybe cut down the hydralazine dose to 50 t.i.d. Monitor the heart rate and blood pressure closely. We will review the echocardiogram and I will follow up. DEMETRI ZHENG MD CM:CONSTR:REPORT OF CONSULTATION 0607 09/25/16 0922 interface
--- NOTE | ~2016-09-24 | PR ---
[place], [place] PROGRESS NOTE NAME: [id number] UNIT #: [id number] ROOM: 410 DOCTOR: INOCENTE LONGO MD BIRTHDATE: [birth year] DOS: 09/26/2016 SUBJECTIVE: This 61-year-old -[place] man was admitted to the hospital and Dr. Emery saw him about 3 days ago. He was bradycardic and also has hypertension as well as end-stage renal disease and dialyzes. He has constant left pectoral chest discomfort for the last week or 10 days. It does not seem to get exertion and is not precipitated by activity. There is no accompanying sweating, nausea, or shortness of breath. OBJECTIVE: GENERAL: He looks well. VITAL SIGNS: Pulses are regular at 56 beats per minute, blood pressure 122/71, previous blood pressure had been high. NECK: JVP is normal. He has a loud left carotid bruit. CARDIOVASCULAR: Auscultation reveals a grade 1/6 early peaking systolic murmur over the apex and no edema at all in the lower extremities. RESPIRATORY: He is not tachypneic. Percussion note reveals no abnormality. Auscultation reveals some rhonchi, but breath sounds are fairly decent. LABORATORY DATA: Monitor shows normal sinus rhythm with heart rate in the 50s and 60s. IMPRESSION: 1. Bradycardia, symptom well settled down, i.e., resolved. 2. End-stage renal disease. He is euvolemic. 3. He has a loud right carotid bruit. 4. Carotid duplex ultrasound will be ordered. I saw this patient on behalf of Dr. Emery . INOCENTE LONGO MD CM:PNTRANS [id number] INOCENTE LONGO MD 09/26/16 0744 interface
[~2016-09-24 15:27] MED LIST changes: -CALCIUM ACETAT667 MG PO
[2016-09-24 15:46] VITALS: BP 90/60
[2016-09-24 16:08] LABS: HEMATOCRIT 30.5 % (42.0-52.0); HEMOGLOBIN 10.6 g/dl (14.0-18.0); MEAN CELL VOLUME 86.6 fl (80.0-94.0); MEAN CORPUSCULAR HGB 30.1 pg (27.0-31.0); MEAN CORPUSCULAR HGB CONC 34.8 g/dl (33.0-37.0); MEAN PLATELET VOLUME 12.4 fl (9.6-12.3); PLATELET COUNT AUTOMATED 190 10*3/uL (130-400); RED BLOOD COUNT 3.52 10*6/uL (4.50-5.90); RED CELL DISTRI WIDTH 14.8 % (0-14.5)
[2016-09-24 16:16] LABS: INTERNATIONAL NORM RATIO 0.9 (2.0-3.5)
[2016-09-24 16:26] LABS: ALBUMIN 2.9 gm/dl (3.1-4.5); ALKALINE PHOSPHATASE 119 U/L (45-117); BILIRUBIN, TOTAL 0.2 mg/dl (0.2-1.0); BUN 27 mg/dl (7-24); CARBON DIOXIDE 22 mmol/L (21-32); CHLORIDE 93 mmol/L (98-107); CPK 27 U/L (39-308); EST GLOM FILT AFRICAN AMERICAN 21 ml/min; GLUCOSE 96 mg/dL (65-99); LDH 127 U/L (87-241); MAGNESIUM 2.1 mg/dL (1.5-2.1); POTASSIUM 4.7 mmol/L (3.5-5.1); SGOT/AST 16 IU/L (3-35); SGPT/ALT 12 U/L (12-78); SODIUM 130 mmol/L (136-145); TOTAL PROTEIN 6.7 gm/dL (6.4-8.2)
[2016-09-24 16:27] LABS: CKMB 0.6 ng/ml (0.5-3.6); TROPONIN I < 0.015 ng/ml (<0.045)
[2016-09-24 16:43] LABS: BASOPHIL # 0.1 10*3/uL (0-0.1); BASOPHILS 2 % (0-1); EOSINOPHIL # 0.2 10*3/uL (0-0.4); EOSINOPHILS 6 % (1-4); MONOCYTE # 0.3 10*3/uL (0.1-1.0); NEUTROPHIL # 2.4 10*3/uL (2.3-7.9); NEUTROPHILS 60 % (47-73); TOTAL CELLS COUNTED 100 #CELLS
[2016-09-24 16:46] LABS: PLATELET SUFFICIENCY NORMAL (NORMAL); TARGET CELLS FEW
[2016-09-24 16:47] VITALS: BP 116/76
[2016-09-24 18:49] VITALS: BP 162/86
[2016-09-24 19:30] VITALS: BP 160/74
[2016-09-24] MEDS ORDERED: HYDRALAZINE HC100 MG PO (19:49)
[2016-09-24] MEDS ORDERED: LASIX20 MG PO (19:50)
[2016-09-24] MEDS ORDERED: CALCIUM ACETAT667 MG PO (19:52)
[2016-09-24] MEDS ORDERED: NORCO 7.5-3251 EACH PO (19:53)
[2016-09-24 20:34] LABS: BILIRUBIN NEGATIVE (NEGATIVE); BLOOD NEGATIVE (NEGATIVE); CLARITY CLEAR (CLEAR); COLOR YELLOW (YELLOW); GLUCOSE NEGATIVE (NEGATIVE); KETONE NEGATIVE (NEGATIVE); LEUKO ESTERASE NEGATIVE (NEGATIVE); NITRITE NEGATIVE (NEGATIVE); PH 6.5 (5.0-9.0); PROTEIN 1+ (NEGATIVE); SPECIFIC GRAVITY <= 1.005 (1.005-1.030); UROBILINOGEN 0.2 E.U./dl (0.2-1.0)
[2016-09-24 20:40] LABS: EPITHELIAL CELLS 0-2; RBC 0-2 rbc/hpf (0-2); WBC 0-2 wbc/hpf (0-5)
[2016-09-24 20:41] LABS: BACTERIA TRACE; URINE REFLEX COMMENT NO (NO)
[2016-09-25] VITALS: BP 136/84
[2016-09-25 05:19] VITALS: BP 158/90
[2016-09-25 06:19] LABS: BASO # 0.1 10*3/uL (0.0-0.1); BASO % 1.2 % (0.0-1.0); EOS # 0.4 10*3/uL (0.0-0.4); EOS % 6.9 % (1.0-4.0); HEMATOCRIT 31.8 % (42.0-52.0); HEMOGLOBIN 11.2 g/dl (14.0-18.0); IG # 0.1 10*3/uL (0.0-0.1); LYMPH # 0.8 10*3/uL (1.3-4.4); LYMPH % 16.3 % (27.0-41.0); MEAN CELL VOLUME 85.7 fl (80.0-94.0); MEAN CORPUSCULAR HGB 30.2 pg (27.0-31.0); MEAN CORPUSCULAR HGB CONC 35.2 g/dl (33.0-37.0); MONO # 0.6 10*3/uL (0.1-1.0); MONO % 11.3 % (3.0-9.0); NEUT # 3.2 10*3/uL (2.3-7.9); NEUT % 62.7 % (47.0-73.0); NUCLEATED RED BLOOD CELL 0.4 % (0.0-0.0); PLATELET COUNT AUTOMATED 204 10*3/uL (130-400); RED BLOOD COUNT 3.71 10*6/uL (4.50-5.90); RED CELL DISTRI WIDTH 14.6 % (0-14.5)
[2016-09-25 06:39] LABS: HEMOGLOBIN A1c 4.1 % (4.8-5.6)
[2016-09-25 06:58] LABS: ALBUMIN 2.7 gm/dl (3.1-4.5); BILIRUBIN, TOTAL 0.2 mg/dl (0.2-1.0); PHOSPHOROUS 3.6 mg/dL (2.5-4.9); POTASSIUM 4.5 mmol/L (3.5-5.1); TOTAL PROTEIN 6.4 gm/dL (6.4-8.2)
[2016-09-25 07:00] LABS: PROTHROMBIN TIME 10.1 SECONDS (9.0-12.4)
[2016-09-25 07:04] LABS: THYROID STIM HORMONE (HS) 2.6 uIU/ml (0.358-4.75); VITAMIN D, 25-HYDROXY 23.2 ng/mL (30-100)
[2016-09-25 07:05] LABS: FOLIC ACID 15.24 ng/mL (>5.38)
[2016-09-25 08:00] VITALS: BP 162/87
[2016-09-25 12:00] VITALS: BP 182/80
[2016-09-25 16:00] VITALS: BP 137/94
[2016-09-25 20:00] VITALS: BP 160/98
[2016-09-26] VITALS: BP 122/71
[2016-09-26 08:00] VITALS: BP 148/80
[2016-09-26 16:00] VITALS: BP 168/88
[2016-09-26 20:00] VITALS: BP 166/81
[2016-09-27] VITALS: BP 127/72
[2016-09-27 08:00] VITALS: BP 146/82
[2016-09-27] MEDS ORDERED: MECLIZINE HCL25 M2 PO (11:47)
[2016-09-27 12:00] VITALS: BP 134/73
== END 2016-09-27 13:00 | disposition home or self-care (01) | DRG 312 ==
LOC: ED 15:27 → 4E 17:14 → EDHOLD 17:14 → 4E 17:57
PROVIDERS: Internal Medicine; Physician Assistant
PROC: 5A1D00Z (ICD-10-PCS; principal; 2016-09-24)
DX: I95.1 Orthostatic hypotension (principal); I13.2 Hypertensive heart and chronic kidney disease with heart failure and with stage 5 chronic kidney disease, or end stage renal disease; C15.9 Malignant neoplasm of esophagus, unspecified; N17.9 Acute kidney failure, unspecified; E44.0 Moderate protein-calorie malnutrition; E87.1 Hypo-osmolality and hyponatremia; E86.0 Dehydration; N18.6 End stage renal disease; F33.9 Major depressive disorder, recurrent, unspecified; Z68.1 Body mass index [BMI] 19.9 or less, adult; E87.8 Other disorders of electrolyte and fluid balance, not elsewhere classified; I34.0 Nonrheumatic mitral (valve) insufficiency; R00.1 Bradycardia, unspecified; E55.9 Vitamin D deficiency, unspecified; F10.129 Alcohol abuse with intoxication, unspecified; E78.1 Pure hyperglyceridemia; R80.9 Proteinuria, unspecified; E87.5 Hyperkalemia; I50.9 Heart failure, unspecified; D72.810 Lymphocytopenia; F17.210 Nicotine dependence, cigarettes, uncomplicated; I45.81 Long QT syndrome; G89.29 Other chronic pain; D63.1 Anemia in chronic kidney disease; Z90.49 Acquired absence of other specified parts of digestive tract; Z90.3 Acquired absence of stomach [part of]; Z87.11 Personal history of peptic ulcer disease; Z86.73 Personal history of transient ischemic attack (TIA), and cerebral infarction without residual deficits; Z86.19 Personal history of other infectious and parasitic diseases; Z83.3 Family history of diabetes mellitus; Z82.49 Family history of ischemic heart disease and other diseases of the circulatory system; Z79.899 Other long term (current) drug therapy

== ENCOUNTER 2017-03-02 02:35 | Inpatient (IN) | payer OTHER ==
[2017-03-02] VITALS (14 sets, daily range): BP systolic 118–177; BP diastolic 70–99
[~2017-03-02] VITALS: Ht 170.2 cm; Wt 55.5 kg
--- NOTE | ~2017-03-02 | PR ---
[place], [place] PROGRESS NOTE NAME: TAYLOR HOLT [facility] #: [id number] UNIT #: [id number] ROOM: 421 DOCTOR: JILLIAN DÍAZ MD BIRTHDATE: [birth year] DOS: 03/04/2017 SUBJECTIVE: The patient was seen in followup of ESRD, underwent treatment with dialysis on Thursday and tolerated it well. Hyponatremia seems to have been stabilized. He is not drinking alcohol and not having any withdrawal symptoms. He is hopeful for discharge. OBJECTIVE: VITAL SIGNS: Temperature 98.3, 60, 18, 138/80. Exam is unchanged. LABORATORY DATA AND DIAGNOSTICS: Were reviewed. White blood cell count 4.6, hemoglobin 9.6, platelets 136. Sodium 132, potassium 4.1, chloride 94, bicarbonate 30, BUN 26, creatinine 2.98, calcium 8.4, magnesium 1.9, phosphorus 2.6. ASSESSMENT AND PLAN: 1. End-stage renal disease, hemodialysis Thursday and Thursday. Good rebound of his residual renal function continues. 2. Electrolytes hyponatremia. Continue to limit his beer intake and overall fluid intake, increased solute and protein intake. 3. Noncompliance with dialysis, encouraged better adherence to his treatments. He missed entire week plus of treatments before he came to the hospital after going over a fishing trip. 4. Mineral bone disease, hypocalcemia is improving. Continue vitamin D with dialysis treatments and binders for hyperphosphatemia, but for right now is acceptable. 5. Anemia. Continue erythropoietin stimulating agents with dialysis. JILLIAN ÍDAZ MD CM:PNTRANS [id number] JILLIAN DÍAZ MD 03/09/17 0724 interface
--- NOTE | ~2017-03-02 | PR ---
[place], [place] PROGRESS NOTE NAME: TAYLOR HOLT UNIT #: [id number] ROOM: 421 DOCTOR: JILLIAN DÍAZ MD BIRTHDATE: [birth year] DOS: 03/03/2017 SUBJECTIVE: The patient has no acute complaints. He is drinking well. Sodium is improved after dialysis yesterday. OBJECTIVE: VITAL SIGNS: 129/63, 20, 96, 98.2. GENERAL: Awake, alert and oriented, no acute distress. LUNGS: Clear bilaterally, no audible rales, rhonchi or wheeze. CARDIOVASCULAR: Regular rate. No audible rub. ABDOMEN: Soft, nontender, nondistended. EXTREMITIES: Without cyanosis, clubbing or significant edema. LABORATORY DATA AND DIAGNOSTICS: Sodium 135, potassium 3.5, chloride 97, bicarbonate 31, BUN 17, creatinine 2.23, glucose 109, calcium 7.4, phosphorus 3.3, magnesium 1.8, albumin 2.6. Vitamin D 32.2. ASSESSMENT AND PLAN: 1. End-stage renal disease. Continue dialysis twice a week, Mondays and Fridays. He has good amount of residual kidney function. 2. Volume hypertension. Blood pressures are acceptably controlled. Continue as on dialysis as tolerated, limit beer intake given his significant hyponatremia and at times volume issues. 3. Hyponatremia was severe, improved with dialysis, continue; limit fluid intake and beer intake, try to minimize how much he is drinking. 4. Anemia, acceptable levels for ESRD, continue DARLINE with dialysis when he comes to treatment. 5. Hypocalcemia, improved when adjusted for his hypoalbuminemia. JILLIAN DÍAZ MD CM:PNTRANS [id number] JILLIAN DÍAZ MD 03/08/17 0135 interface
--- NOTE | ~2017-03-02 | CON ---
[place], [place] REPORT OF CONSULTATION NAME: TAYLOR HOLT UNIT #: [id number] ROOM: [facility]- DOCTOR: JILLIAN DÍAZ MD BIRTHDATE: [birth year] DOS: 03/02/2017 REASON FOR CONSULTATION: ESRD management. HISTORY OF PRESENT ILLNESS: The patient is a 61-year-old gentleman known to me for his history of renal failure. He has been on dialysis 2 days a week. He does have some fair amount of residual renal function, was actually off dialysis for a period of time until he was rehospitalized with shortness of breath, volume overload and worsened renal chemistries. He was restarted on dialysis and has been doing fairly well. He is normally supposed to go Mondays and Fridays, but usually only goes about once a week, missed both treatments last week, presented to the hospital with acute onset of lower extremity pain, mostly cramping sensations. He was fishing for a great deal for some ____ in [place] and he states that he was catching a fair amount of fish, eating and drinking well, drank about 3-4 beers a day while he was up there. He does still make urine and uses an AV graft for dialysis. He underwent a full treatment today. His alcohol levels were high when he first arrived at 0.37 and he has been having more nausea and vomiting of late and some generalized weakness. He has significant hyponatremia on laboratories when he arrived, had a sodium of 123. His bicarbonate was low at 15, BUN 39, creatinine 3.6, but he is a very poorly nourished gentleman with very low muscle mass only 57 kilos. His ammonia level was 12. Troponin was negative. Albumin was 2.8. TSH was normal. White count was normal, hemoglobin 10.1. His ionized calcium slightly low at 4.38 mg/dL. Again, his alcohol level was 0.28. He was hypertensive and placed on a nitro drip and placed in the ICU. PAST MEDICAL HISTORY: Renal failure as above, TIA, hypertension, partial esophagogastrectomy, splenectomy, tonsillectomy, neck surgery, CHF, hypertension, vitamin D deficiency, anemia, positive alcohol dependence. FAMILY HISTORY: Negative for renal failure. ALLERGIES: No known drug allergies. HOME MEDICATIONS: Reviewed, but the patient is noncompliant. REVIEW OF SYSTEMS: Negative except for as per HPI in all systems. PHYSICAL EXAMINATION: VITAL SIGNS: Blood pressure 150s-170s/70s-80s, afebrile, heart rate 70s, respiratory rate 14, pulse ox 97% on room air. GENERAL: Awake, alert. He is oriented. He is somnolent, but awakens and answers questions appropriately. HEAD AND NECK: Bronzed appearance from a lot of sun exposed areas, thickened skin. NECK: No JVD or lymphadenopathy. HEENT: Extraocular muscles are intact. Sclerae are anicteric. Oropharynx is clear. Mucous membranes are moist. LUNGS: Clear bilaterally. No audible rales or wheeze. CARDIOVASCULAR: Regular rate. No audible rub. [place], [place] REPORT OF CONSULTATION NAME: TAYLOR HOLT UNIT #: [id number] ROOM: [facility] DOCTOR: JILLIAN DÍAZ MD BIRTHDATE: [birth year] ABDOMEN: Soft, nontender, nondistended. No rebound, no guarding. EXTREMITIES: Lower extremities without cyanosis, clubbing or edema. NEUROLOGIC: Without significant asterixis. Orientation is intact. LABORATORY AND DIAGNOSTIC DATA: White blood cell count 7.7, hemoglobin 10.1, platelets 168. INR 1. Ionized calcium 4.38. Sodium 123, potassium 4.8, chloride 95, bicarbonate 15, BUN 39, creatinine 3.6, glucose 62, calcium 7.5, magnesium 2.3, total bilirubin 0.3, AST 38, ALT 15, alkaline phosphatase 98, ammonia 12. Troponin less than 0.015. Albumin 2.8, total protein 6.5, lipase 117. TSH 3.68. Ethyl alcohol 28. CT L spine normal. CT chest without significant pulmonary edema or infiltrate. ASSESSMENT AND PLAN: End-stage renal disease. Overall, has some renal reserve, but has not done well with coming off dialysis, so he has been ordered 2 days a week, still he does not come 2 days a week and averages about 1 to 1-1/2 times a week over the course of the month, nonadherence has been a long-term issue with him, dietary nonadherence as well as dialysis nonadherence. Continues to drink alcohol, mostly beer. His hyponatremia has been a chronic issue and this is certainly acutely exacerbated. He also has worsened acidosis, probably from nonadherence to dialysis. He underwent a full treatment today with 2.1 liters of net ultrafiltration and we will continue to follow up laboratories for him and consider a third dialysis treatment this week. If he is still hospitalized, we may need to do another treatment on Thursday. Thank you very much for kind consultation. We will continue to follow with you. JILLIAN DÍAZ MD CM:CONSTR:REPORT OF CONSULTATION 1435 03/03/17 0919 interface
[~2017-03-02 02:35] MED LIST changes: +CALCIUM ACETAT667 MG PO
[2017-03-02 03:01] LABS: BASO # 0.1 10*3/uL (0.0-0.1); BASO % 1.2 % (0.0-1.0); EOS # 0.5 10*3/uL (0.0-0.4); EOS % 6.5 % (1.0-4.0); HEMATOCRIT 28.8 % (42.0-52.0); HEMOGLOBIN 10.1 g/dl (14.0-18.0); LYMPH % 12.5 % (27.0-41.0); MEAN CELL VOLUME 85.7 fl (80.0-94.0); MEAN CORPUSCULAR HGB 30.1 pg (27.0-31.0); MEAN CORPUSCULAR HGB CONC 35.1 g/dl (33.0-37.0); MEAN PLATELET VOLUME 12.9 fl (9.6-12.3); MONO # 0.7 10*3/uL (0.1-1.0); MONO % 9.6 % (3.0-9.0); NEUT # 5.3 10*3/uL (2.3-7.9); NEUT % 69.3 % (47.0-73.0); PLATELET COUNT AUTOMATED 168 10*3/uL (130-400); RED BLOOD COUNT 3.36 10*6/uL (4.50-5.90); RED CELL DISTRI WIDTH 14.6 % (0-14.5); WHITE BLOOD COUNT 7.7 10*3/uL (4.8-10.8)
--- NOTE | 2017-03-02 03:08 | NUR ---
PT TO CT
[2017-03-02 03:21] LABS: ALBUMIN 2.8 gm/dl (3.1-4.5); ALKALINE PHOSPHATASE 98 U/L (45-117); BUN 39 mg/dl (7-24); CHLORIDE 95 mmol/L (98-107); CREATININE 3.57 mg/dL (0.70-1.30); LIPASE 117 U/L (73-393); MAGNESIUM 2.3 mg/dL (1.5-2.1); POTASSIUM 4.8 mmol/L (3.5-5.1); SGOT/AST 33 IU/L (3-35); SGPT/ALT 15 U/L (12-78); SODIUM 123 mmol/L (136-145); TOTAL PROTEIN 6.5 gm/dL (6.4-8.2)
[2017-03-02 03:24] LABS: TROPONIN I < 0.015 ng/ml (<0.045)
--- NOTE | 2017-03-02 03:53 | NUR ---
PATIENT SLEEPING IN BED NO SIGNS OF DISTRESS, BED IN LOWEST POSITION BED RAILS UP X 2 CALL MARIN IN REACH
--- NOTE | 2017-03-02 05:15 | NUR ---
A 61, admitted to [facility], under the services of JEANNA Rodriguez DO with a diagnosis of ESRD, hyponatremia. Chief complaint is came to ER with c/o lower leg pain. Patient skipped dialysis all week "on vacation" and didn't tell [facility]. Patient arrived via stretcher from ER. Monitor applied. Initial assessment completed. Vital signs taken and recorded. See assessment for past medical history, medications and allergies. Patient and/or family oriented to unit. [facility] visitation policy reviewed. Clothing/patient valuable form completed. JENNIFER MILTON
--- NOTE | 2017-03-02 06:13 | NUR ---
MED REC REVIEWED WITH PATIENTS GIRLFRIEND PER PATIENT REQUEST SAID SHE KNEW HIS MEDS HE DID NOT. DOCTOR SALAS MADE AWARE MED REC IS UP TO DATE.
--- NOTE | 2017-03-02 06:14 | NUR ---
DOCTOR MINNIE CONSULTED FOR DIALYSIS. ANSWERING SERVICE NOTIFIED OF CONSULT.
--- NOTE | 2017-03-02 06:38 | NUR ---
PATIENT GIVEN DILAUDID FOR 9/10 BILAT LOWER LEG PAIN.
--- NOTE | 2017-03-02 06:59 | NUR ---
DOCTOR DÍAZ CALLED BACK FOR CONSULT NO NEW ORDERS WILL SEE TODAY.
--- NOTE | 2017-03-02 08:00 | NUR ---
SA NOT INDICATED AT THIS TIME..PT ON RA SPO2 94% BBS CLEAR PT IN NO DISTRESS
--- NOTE | 2017-03-02 08:43 | NUR ---
DIALYSIS NURSE HERE AND GETTING MACHINES SET UP FOR TREATMENT.
--- NOTE | 2017-03-02 09:00 | NUR ---
MED LIST REVIEWED WITH THE PATIENT. PER THE PATIENT HE ALSO TAKES A PAIN PILL BUT HE THINKS DR MORENO MAY HAVE CUT HIM OFF BECAUSE HE FOUND THC IN HIS SYSTEM (LAST ORDERED IN DECEMBER 2016). WHEN ASKED IF DR MORENO WAS HIS DOCTOR THE PATIENT SAID YES BUT HE HASN'T SEEN HIM SINCE THE [facility] WAS FOUND & HE ISN'T SURE IF DR MORENO WILL SEE HIM ANY MORE. PER THE PATIENT HE TAKES HIS MEDS LIKE HE SHOULD BUT THEY WERE LAST FILLED FOR 30 DAY SUPPLIED 01/21/17.
[2017-03-02] MEDS ORDERED: 'CLONIDINE0.1 MG PO (09:06)
[2017-03-02] MEDS ORDERED: LASIX20 MG PO (09:08)
[2017-03-02] MEDS ORDERED: TRAVEL SICKNESS25 M1 PO (09:16)
[2017-03-02] MEDS ORDERED: SENNA8.6 MG PO (09:26)
--- NOTE | 2017-03-02 13:07 | NUR ---
DILAYSIS COMPLETED - MEDICATIONS STARTED - BLOOD PRESSURE REMIANS ELEVATED
--- NOTE | 2017-03-02 13:37 | NUR ---
DISCUSSED THE IMPORTANCE OF TAKING HIS MEDICATIONS EVERY DAY ORDERED TO PREVENT FURTHER KIDNEY DAMAGE WHICH WILL RESULT IN DIALYSIS 3 TIMES A WEEK OR POSSIBLY A STROKE WHICH COULD LEAVE HIM BED BOUND & UNABLE TO DO ANYTHING. DISCUSSED BLISTER PACKS AVAILABLE FROM THE PHARMACIES TO BE SURE MEDS ARE READY. PATIENT VOICED UNDERSTANDING
--- NOTE | 2017-03-02 17:46 | NUR ---
PAIN IN BOTH LEGS 09/12 - BETTER THAN LAST NIGHT "THOUGHT THEY WERE GOING TO FALL OFF" ADRICO GIVEN -
--- NOTE | 2017-03-02 18:39 | NUR ---
PAIN 2/10 BUT BURNING SENSATION IN FEET. DISCUSSED REMAINING PILLS ORDERED FOR ALTER. PT VOICED UNDERSTANDING. DINNER EATEN WELL. FLUID RESTRICTIONS DISCUSSED AGAIN.
--- NOTE | 2017-03-02 19:02 | NUR ---
Shift chart check completed.24 HR chart check completed.
--- NOTE | 2017-03-02 19:36 | NUR ---
ON ASSESSMENT PATIENT LYING QUIETLY, WATCHING TV. NO VOICED C/O PAIN AT THIS TIME. HE HAS REQUESTED A "SMOKING PATCH" AND CLAIMS TO SMOKE "ABOUT A PACK A DAY". DR BENTLEY CALLED AND SAID HE WILL ENTER ORDERS.
--- NOTE | 2017-03-02 19:54 | NUR ---
NICOTENE PATCH APPLIED REQUESTED.
--- NOTE | 2017-03-02 21:42 | NUR ---
SLEEPING EASILY AT PRESENT. RESPIRATIONS EASY. NO DYSRHYTHMIAS.
--- NOTE | 2017-03-02 22:52 | NUR ---
MEDICATED WITH NORCO FOR "BURNING PAIN" IN HIS FEET "5"10. MILK AND CRACKERS FOR HS SNACK PT PT REQUEST. BED IN LOW POSITION WITH WHEELS LOCKED. CALL LIGHT IN REACH.
[2017-03-03] VITALS: BP 158/70
--- NOTE | 2017-03-03 00:14 | NUR ---
EARLIER NORCO APPEARS EFFECTIVE. PT APPEARS TO BE SLEEPING WITH EYES CLOSED, EASY RESPIRATIONS. NO DYSRHYTHMIAS.
[2017-03-03 05:08] VITALS: BP 114/73
[2017-03-03 05:45] LABS: ALBUMIN 2.6 gm/dl (3.1-4.5); CREATININE 2.23 mg/dL (0.70-1.30); MAGNESIUM 1.8 mg/dL (1.5-2.1); PHOSPHOROUS 3.3 mg/dL (2.5-4.9)
[2017-03-03 05:51] LABS: THYROID STIM HORMONE (HS) 3.55 uIU/ml (0.358-4.75)
[2017-03-03 05:55] LABS: BASO # 0.1 10*3/uL (0.0-0.1); BASO % 2.8 % (0.0-1.0); EOS # 0.3 10*3/uL (0.0-0.4); EOS % 6.8 % (1.0-4.0); HEMATOCRIT 27.6 % (42.0-52.0); HEMOGLOBIN 9.8 g/dl (14.0-18.0); LYMPH # 0.8 10*3/uL (1.3-4.4); LYMPH % 20.6 % (27.0-41.0); MEAN CELL VOLUME 85.4 fl (80.0-94.0); MEAN CORPUSCULAR HGB 30.3 pg (27.0-31.0); MEAN CORPUSCULAR HGB CONC 35.5 g/dl (33.0-37.0); MEAN PLATELET VOLUME 13.9 fl (9.6-12.3); MONO # 0.5 10*3/uL (0.1-1.0); NEUT # 2.2 10*3/uL (2.3-7.9); PLATELET COUNT AUTOMATED 167 10*3/uL (130-400); POTASSIUM 3.5 mmol/L (3.5-5.1); RED BLOOD COUNT 3.23 10*6/uL (4.50-5.90); RED CELL DISTRI WIDTH 14.6 % (0-14.5)
[2017-03-03 07:34] LABS: VITAMIN D, 25-HYDROXY 32.2 ng/mL (30-100)
[2017-03-03 08:00] VITALS: BP 130/91
--- NOTE | 2017-03-03 09:00 | NUR ---
Production Finisher in to talk to patient. Patient states lives at home with girlfriend and son. There are no steps in the home. Physician: needs one [facility]acy: [facility] Home health services: none Patient's level of ADLs: INDEPENDENT Patient has working utilities: all working DME: cane a cane, uses it occasionally Follow-up physician's appointment after d/c: will be made by hospitalist nurse director upon discharge Does patient want to access PORTAL?: no Discharge plan discussed with patient, patient lives at home with girlfriend and son, he states he uses a cane occasionally patient states he has dialysis thursday and thursday, but missed last week due to being on vacation, he states he doesn't drive but uses [facility] transportation. patient also stated his last pcp wouldn't accept him back so he needs a new one, patient will be given a list of physicans to choose from and follow up appointment will be made, patient denies any other needs at this time. FEI BARNEY
--- NOTE | 2017-03-03 10:56 | NUR ---
insurance demos submitted on line, reference number is [id number], clinicals will be faxed by faxing team to [phone]
[2017-03-03 12:00] VITALS: BP 129/63
--- NOTE | 2017-03-03 14:00 | NUR ---
PT GIVEN PRN PO NORCO UPON REQUEST FOR COMPLAINTS OF PAIN TO FEET AND NECK, RATING PAIN AT 5/10. WILL MONITOR.
--- NOTE | 2017-03-03 15:00 | NUR ---
PT STATES PAIN MED EFFECTIVE
[2017-03-03 16:00] VITALS: BP 114/72
--- NOTE | 2017-03-03 18:50 | NUR ---
PRN TYLENOL GIVEN FOR COMPLAINTS OF FEET PAIN, WILL MONITOR EFFECTIVENESS.
--- NOTE | 2017-03-03 19:55 | NUR ---
PRN DILAUDID GIVEN FOR PAIN. PER PT. THE PAIN IS IN THE FRONT OF HIS LEGS WITH A BURNING SENSATION AND RATES A 5 OUT OF 10.
[2017-03-03 20:00] VITALS: BP 133/71
--- NOTE | 2017-03-03 22:30 | NUR ---
PRN RESTORIL EFFECTIVE, PT. SLEEPING RESPIRATIONS EASY AND NON LABORED ON RA. NO DISTRESS NOTED.
--- NOTE | 2017-03-03 22:34 | NUR ---
PRN RESTORIL GIVEN PER PT. REQUEST FOR INSOMNIA.
--- NOTE | 2017-03-03 23:01 | NUR ---
15MG PRN RESTORIL GIVEN PER PT. REQUEST FOR INSOMNIA.
--- NOTE | 2017-03-03 23:04 | NUR ---
PRN RESTORIL EFFECTIVE PT. SLEEPING RESPIRATIONS ARE NONLABORED ON RA AND NO DISTRESS.
[2017-03-04] VITALS: BP 138/74
--- NOTE | 2017-03-04 04:54 | NUR ---
24 HR chart check completed.
--- NOTE | 2017-03-04 06:16 | NUR ---
PRN TYLENOL GIVEN PER PT. REQUEST. PT. RATED PAIN A 5 OUT OF 10 IN THE LEGS.
[2017-03-04 07:02] LABS: HEMATOCRIT 28.3 % (42.0-52.0); HEMOGLOBIN 9.6 g/dl (14.0-18.0); MEAN CELL VOLUME 87.3 fl (80.0-94.0); MEAN CORPUSCULAR HGB 29.6 pg (27.0-31.0); MEAN CORPUSCULAR HGB CONC 33.9 g/dl (33.0-37.0); MEAN PLATELET VOLUME 14.1 fl (9.6-12.3); PLATELET COUNT AUTOMATED 136 10*3/uL (130-400); RED BLOOD COUNT 3.24 10*6/uL (4.50-5.90); RED CELL DISTRI WIDTH 15.1 % (0-14.5); WHITE BLOOD COUNT 4.6 10*3/uL (4.8-10.8)
[2017-03-04 07:20] LABS: CREATININE 2.92 mg/dL (0.70-1.30); MAGNESIUM 1.9 mg/dL (1.5-2.1); PHOSPHOROUS 2.6 mg/dL (2.5-4.9); POTASSIUM 4.1 mmol/L (3.5-5.1)
[2017-03-04 07:28] LABS: ACANTHOCYTES FEW; BASOPHILS 6 % (0-1); BURR CELLS FEW; POLYCHROMASIA SLIGHT; SCHISTOCYTES FEW; TARGET CELLS FEW; TOTAL CELLS COUNTED 100 #CELLS
[2017-03-04 07:29] LABS: PLATELET SUFFICIENCY NORMAL (NORMAL)
[2017-03-04 08:00] VITALS: BP 138/80
--- NOTE | 2017-03-04 09:15 | NUR ---
case management visits with patient, patient denies any home needs
[2017-03-04 12:00] VITALS: BP 156/75
--- NOTE | 2017-03-04 13:32 | NUR ---
Medicated with tylenol per prn order for complaints of generalized discomfort.
[2017-03-04 16:00] VITALS: BP 128/73
--- NOTE | 2017-03-04 17:09 | NUR ---
Pt was found outside by security smoking a cigarette. Notified Jeffrey Potts.
[2017-03-04] MEDS ORDERED: 'CLONIDINE0.1 MG PO (18:08)
[2017-03-04] MEDS ORDERED: PROTONIX40 MG PO (18:08)
[2017-03-04] MEDS ORDERED: NATURE'S BLEND F1 MG PO (18:08)
[2017-03-04] MEDS ORDERED: GABAPENTIN100 M2 PO (18:08)
[2017-03-04] MEDS ORDERED: CALCIUM ACETAT667 MG PO (18:08)
[2017-03-04] MEDS ORDERED: LASIX20 MG PO (18:08)
[2017-03-04] MEDS ORDERED: CELEXA20 MG PO (18:08)
[2017-03-04] MEDS ORDERED: HYDRALAZINE HC100 MG PO (18:08)
[2017-03-04] MEDS ORDERED: RESTORIL7.5 M1 PO (18:08)
[2017-03-04] MEDS ORDERED: SODIUM BICARBO650 MG PO (18:08)
[2017-03-04] MEDS ORDERED: COREG25 MG PO (18:08)
[2017-03-04] MEDS ORDERED: AMLODIPINE BESY10 MG PO (18:08)
--- NOTE | 2017-03-04 18:35 | NUR ---
Discharge instructions reviewed with patient/family. Patient receptive and verbalizes understanding. Follow-up care arranged. Written instructions given to patient/family. Notified pt that they would be called tomorrow to set up a pcp. Pt left via ambulatory with belongings. LIZABETH LEGGETT
== END 2017-03-04 18:35 | disposition home or self-care (01) | DRG 640 ==
LOC: ED 02:35 → EDHOLD 04:16 → ICCU 04:16 → 4E 03-03 10:17
PROVIDERS: Emergency Medicine Emergency Medical Services; Hospitalist; Internal Medicine Nephrology; ADMIT Internal Medicine
PROC: 5A1D00Z (ICD-10-PCS; principal; 2017-03-02)
DX: E87.1 Hypo-osmolality and hyponatremia (principal); N18.6 End stage renal disease; I13.2 Hypertensive heart and chronic kidney disease with heart failure and with stage 5 chronic kidney disease, or end stage renal disease; D72.1 Eosinophilia; E44.0 Moderate protein-calorie malnutrition; E83.41 Hypermagnesemia; E83.51 Hypocalcemia; I50.32 Chronic diastolic (congestive) heart failure; Z68.1 Body mass index [BMI] 19.9 or less, adult; E87.8 Other disorders of electrolyte and fluid balance, not elsewhere classified; F10.10 Alcohol abuse, uncomplicated; E16.2 Hypoglycemia, unspecified; K27.9 Peptic ulcer, site unspecified, unspecified as acute or chronic, without hemorrhage or perforation; D63.1 Anemia in chronic kidney disease; F32.9 Major depressive disorder, single episode, unspecified; M13.80 Other specified arthritis, unspecified site; Z90.49 Acquired absence of other specified parts of digestive tract; Z90.3 Acquired absence of stomach [part of]; Z90.81 Acquired absence of spleen; Z99.2 Dependence on renal dialysis; Z91.15 Patient's noncompliance with renal dialysis; Z82.49 Family history of ischemic heart disease and other diseases of the circulatory system; Z83.3 Family history of diabetes mellitus; Z82.3 Family history of stroke; Z86.73 Personal history of transient ischemic attack (TIA), and cerebral infarction without residual deficits; Z85.01 Personal history of malignant neoplasm of esophagus; Z79.899 Other long term (current) drug therapy; Z71.41 Alcohol abuse counseling and surveillance of alcoholic

== ENCOUNTER 2017-07-07 16:40 | Inpatient (IN) | payer OTHER ==
[~2017-07-07] VITALS: Ht 170.1 cm; Wt 48.7 kg
--- NOTE | ~2017-07-07 | PR ---
[place], [place] [facility]GRESS NOTE [id number] #: [id number] ROOM: 516 DOCTOR: INOCENTE LONGO MD BIRTHDATE: [birth year] DOS: 07/09/2017 SUBJECTIVE: He has no chest pain. Breathing is fine. Has not had any palpitations either. His main complaint is about fingers and forearms going numb; both sides are affected. He did walk today. OBJECTIVE: GENERAL: The patient looks well. He is very pleasant and he is alert. He is not tachypneic. Complexion looks fine. VITAL SIGNS: Pulse is 64 and regular, blood pressure 129/79. NECK: Normal JVP. LUNGS: Breath sounds are fairly decent bilaterally. EXTREMITIES: No edema in the lower extremities. A Lexiscan Cardiolite study did not demonstrate ischemia. IMPRESSION: 1. This patient had noncardiac chest pain. 2. End-stage renal disease and he is euvolemic. INOCENTE LONGO MD CM:PNTRANS [id number] INOCENTE LONGO MD 07/10/17 0007 interface
--- NOTE | ~2017-07-07 | ST ---
[place], [place] EXERCISE STRESS TEST REPORT NAME: TAYLOR HOLT UNIT #: [id number] ROOM: 516 DOCTOR: DEMETRI ZHENG MD BIRTHDATE: [birth year] DOS: 07/08/2017 LEXISCAN PORTION OF THE LEXISCAN CARDIOLITE Baseline cardiogram, sinus rhythm with left ventricular hypertrophy, 0.4 mg Lexiscan, duration of 10 seconds. With Lexiscan, no new EKG changes. No chest pain. Blood pressure and heart rate response was normal. Nuclear images will be reported separately. DEMETRI ZHENG MD CM:STRESS:EXERCISE STRESS TEST REPORT [id number] DEMETRI ZHENG MD
--- NOTE | ~2017-07-07 | CON ---
[place], [place] REPORT OF CONSULTATION NAME: TAYLOR HOLT UNIT #: [id number] ROOM: 516 DOCTOR: DEMETRI ZHENG MD BIRTHDATE: [birth year] DOS: 07/08/2017 CHIEF COMPLAINT: Chest pain. HISTORY OF PRESENT ILLNESS: A 62-year-old gentleman with moderate coronary artery disease, does not seen me for a long time. Had done a stress test in about 2 years ago was normal. He had an echocardiogram in September showed an ejection fraction. The patient admitted with significant left-sided chest discomfort. He rated this 10/10. No acute EKG changes suggestion of myocardial injury or infarction. He is seeing Dr. Cristina and Dr. Chen now. The patient denies any chest discomfort right now, ruled out for myocardial infarction. PAST MEDICAL HISTORY: Anemia, depression, history of TIA, hypertension, alcohol abuse, peptic ulcer disease, tobacco abuse. PAST SURGICAL HISTORY: Appendectomy, cholecystectomy, partial gastrectomy, splenectomy, tonsillectomy, history of neck surgery. SOCIAL HISTORY: Continues to drink heavy alcohol and tobacco abuse 1 pack per day. FAMILY HISTORY: Positive for coronary artery disease. ALLERGIES: None. HOME MEDICATIONS: Amlodipine, clonidine, hydralazine. REVIEW OF SYSTEMS: CONSTITUTIONAL: No fever, no chills. HEENT: No visual disturbances or hearing problems. CARDIOVASCULAR: As per HPI. GASTROINTESTINAL: No nausea, no vomiting. GENITOURINARY: No dysuria or hematuria. NEUROLOGICAL: Stable. OBJECTIVE: VITAL SIGNS: Blood pressure is 150/80. HEENT: Unremarkable. NECK: Supple, no JVD. LUNGS: Clear. HEART: Sounds are regular. ABDOMEN: Soft, nontender. NEUROLOGICAL: Stable. LABORATORY DATA: Sodium is 121, creatinine is 3.8.: Hemoglobin 10.6, hematocrit 30.6. IMPRESSION: The patient with known moderate coronary artery disease with chest discomfort, suggestion of unstable angina, significant hyponatremia, noncompliance with the dialysis, hypochloremia, chronic renal failure, tobacco [place], [place] REPORT OF CONSULTATION NAME: TAYLOR HOLT [facility] UNIT #: [id number] ROOM: 516 DOCTOR: DEMETRI ZHENG MD BIRTHDATE: [birth year] abuse, alcohol abuse. RECOMMENDATIONS: Watch for any withdrawal for alcohol. We will set up a Lexiscan Cardiolite stress test. Monitor the sodium level very well. Probably, the patient needs fluid restriction because of the sodium. Nephrology is following and I will follow up. DEMETRI ZHENG MD CM:CONSTR:REPORT OF CONSULTATION 0656 07/08/17 0835 interface
[~2017-07-07 16:40] MED LIST changes: +'CLONIDINE0.1 MG PO; +GABAPENTIN100 M2 PO; +NATURE'S BLEND F1 MG PO; +SENNA8.6 MG PO; +TRAVEL SICKNESS25 M1 PO
[2017-07-07 16:45] VITALS: BP 119/78
[2017-07-07 17:32] LABS: BASO # 0.1 10*3/uL (0.0-0.1); BASO % 1.9 % (0.0-1.0); EOS # 0.5 10*3/uL (0.0-0.4); EOS % 7.2 % (1.0-4.0); HEMATOCRIT 30.6 % (42.0-52.0); HEMOGLOBIN 10.6 g/dl (14.0-18.0); LYMPH # 2.1 10*3/uL (1.3-4.4); LYMPH % 32.9 % (27.0-41.0); MEAN CORPUSCULAR HGB CONC 34.6 g/dl (33.0-37.0); MEAN PLATELET VOLUME 11.2 fl (9.6-12.3); MONO # 0.5 10*3/uL (0.1-1.0); MONO % 8.3 % (3.0-9.0); NEUT # 3.1 10*3/uL (2.3-7.9); NEUT % 49.2 % (47.0-73.0); NUCLEATED RED BLOOD CELL 0.3 % (0.0-0.0); PLATELET COUNT AUTOMATED 246 10*3/uL (130-400); RED BLOOD COUNT 3.78 10*6/uL (4.50-5.90); WHITE BLOOD COUNT 6.3 10*3/uL (4.8-10.8)
[2017-07-07 17:48] LABS: ALBUMIN 3.1 gm/dl (3.1-4.5); ALKALINE PHOSPHATASE 96 U/L (45-117); BUN 24 mg/dl (7-24); CHLORIDE 86 mmol/L (98-107); CREATININE 3.84 mg/dL (0.70-1.30); SGOT/AST 20 IU/L (3-35); SGPT/ALT 14 U/L (12-78); SODIUM 121 mmol/L (136-145); TOTAL PROTEIN 6.9 gm/dL (6.4-8.2)
[2017-07-07 17:50] LABS: TROPONIN I < 0.015 ng/ml (<0.045)
[2017-07-07 20:22] VITALS: BP 151/80
[2017-07-08] VITALS: BP 136/80
[2017-07-08 04:00] VITALS: BP 140/83
[2017-07-08 08:00] VITALS: BP 160/80
[2017-07-08 08:06] LABS: BASO # 0.1 10*3/uL (0.0-0.1); EOS # 0.4 10*3/uL (0.0-0.4); LYMPH # 1.2 10*3/uL (1.3-4.4); LYMPH % 16.4 % (27.0-41.0); MEAN CELL VOLUME 80.7 fl (80.0-94.0); MEAN CORPUSCULAR HGB 28.5 pg (27.0-31.0); MEAN CORPUSCULAR HGB CONC 35.3 g/dl (33.0-37.0); MEAN PLATELET VOLUME 12.4 fl (9.6-12.3); MONO # 0.4 10*3/uL (0.1-1.0); MONO % 5.8 % (3.0-9.0); NEUT # 4.9 10*3/uL (2.3-7.9); NEUT % 69.5 % (47.0-73.0); NUCLEATED RED BLOOD CELL 0.3 % (0.0-0.0); PLATELET COUNT AUTOMATED 259 10*3/uL (130-400); RED CELL DISTRI WIDTH 16.6 % (0-14.5)
[2017-07-08 08:09] LABS: HEMATOCRIT 37.1 % (42.0-52.0); HEMOGLOBIN 13.1 g/dl (14.0-18.0)
[2017-07-08 08:33] LABS: ALBUMIN 3.5 gm/dl (3.1-4.5); CREATININE 4.37 mg/dL (0.70-1.30); PHOSPHOROUS 4.3 mg/dL (2.5-4.9); TOTAL PROTEIN 7.8 gm/dL (6.4-8.2)
[2017-07-08 08:38] LABS: THYROID STIM HORMONE (HS) 2.62 uIU/ml (0.358-4.75)
[2017-07-08 08:44] LABS: INTERNATIONAL NORM RATIO 0.9 (2.0-3.5)
[2017-07-08 12:00] VITALS: BP 134/82
[2017-07-08 20:00] VITALS: BP 169/95
[2017-07-09] VITALS: BP 158/82
[2017-07-09 04:00] VITALS: BP 159/74
[2017-07-09 06:38] LABS: CREATININE 2.15 mg/dL (0.70-1.30); PHOSPHOROUS 2.6 mg/dL (2.5-4.9); POTASSIUM 3.3 mmol/L (3.5-5.1)
[2017-07-09 08:00] VITALS: BP 167/72
[2017-07-09 12:00] VITALS: BP 124/75
[2017-07-09 16:00] VITALS: BP 129/79
[2017-07-09 20:00] VITALS: BP 134/79
[2017-07-09] MEDS ORDERED: 'CLONIDINE0.1 MG PO (20:31)
[2017-07-09] MEDS ORDERED: VITAMIN D31000 UNIT PO (20:33)
[2017-07-09] MEDS ORDERED: SIMVASTATIN40 MG PO (20:34)
[2017-07-10] VITALS: BP 139/79
[2017-07-10 07:40] LABS: BASO # 0.1 10*3/uL (0.0-0.1); BASO % 2.7 % (0.0-1.0); EOS # 0.3 10*3/uL (0.0-0.4); LYMPH # 1.3 10*3/uL (1.3-4.4); MEAN CORPUSCULAR HGB 28.9 pg (27.0-31.0); MEAN CORPUSCULAR HGB CONC 34.3 g/dl (33.0-37.0); MEAN PLATELET VOLUME 11.8 fl (9.6-12.3); MONO # 0.5 10*3/uL (0.1-1.0); MONO % 9.3 % (3.0-9.0); NEUT # 2.6 10*3/uL (2.3-7.9); NEUT % 53.8 % (47.0-73.0); NUCLEATED RED BLOOD CELL 0.4 % (0.0-0.0); PLATELET COUNT AUTOMATED 186 10*3/uL (130-400); RED CELL DISTRI WIDTH 17.2 % (0-14.5); WHITE BLOOD COUNT 4.9 10*3/uL (4.8-10.8)
[2017-07-10 07:42] LABS: HEMATOCRIT 30.3 % (42.0-52.0); HEMOGLOBIN 10.4 g/dl (14.0-18.0); MEAN CELL VOLUME 84.2 fl (80.0-94.0)
[2017-07-10 07:57] LABS: ALBUMIN 2.9 gm/dl (3.1-4.5); CREATININE 3.03 mg/dL (0.70-1.30); PHOSPHOROUS 2.9 mg/dL (2.5-4.9)
[2017-07-10 08:00] VITALS: BP 114/69
[2017-07-10 08:21] LABS: POTASSIUM 4.3 mmol/L (3.5-5.1)
[2017-07-10 12:00] VITALS: BP 124/97
== END 2017-07-10 13:54 | disposition home or self-care (01) | DRG 302 ==
LOC: ED 16:40 → 5E 18:46 → EDHOLD 18:46 → 4NE 18:51 → 5E 19:38
PROVIDERS: Emergency Medicine; Hospitalist; Internal Medicine Nephrology; Nurse Practitioner Adult Health
PROC: 4A02XM4 Measurement of Cardiac Total Activity, External Approach (ICD-10-PCS; principal; 2017-07-08)
PROC: 3E073KZ Introduction of Other Diagnostic Substance into Coronary Artery, Percutaneous Approach (ICD-10-PCS; 2017-07-08)
PROC: 5A1D70Z Performance of Urinary Filtration, Intermittent, Less than 6 Hours Per Day (ICD-10-PCS; 2017-07-08)
DX: I25.110 Atherosclerotic heart disease of native coronary artery with unstable angina pectoris (principal); N18.6 End stage renal disease; I13.2 Hypertensive heart and chronic kidney disease with heart failure and with stage 5 chronic kidney disease, or end stage renal disease; E87.8 Other disorders of electrolyte and fluid balance, not elsewhere classified; E44.0 Moderate protein-calorie malnutrition; E87.1 Hypo-osmolality and hyponatremia; S29.011A Strain of muscle and tendon of front wall of thorax, initial encounter; D63.1 Anemia in chronic kidney disease; Z68.1 Body mass index [BMI] 19.9 or less, adult; K21.9 Gastro-esophageal reflux disease without esophagitis; I25.9 Chronic ischemic heart disease, unspecified; F41.9 Anxiety disorder, unspecified; K27.9 Peptic ulcer, site unspecified, unspecified as acute or chronic, without hemorrhage or perforation; D72.824 Basophilia; M50.322 Other cervical disc degeneration at C5-C6 level; F32.9 Major depressive disorder, single episode, unspecified; R73.9 Hyperglycemia, unspecified; E55.9 Vitamin D deficiency, unspecified; E78.2 Mixed hyperlipidemia; I50.9 Heart failure, unspecified; X58.XXXA Exposure to other specified factors, initial encounter; F17.200 Nicotine dependence, unspecified, uncomplicated; F10.10 Alcohol abuse, uncomplicated; F12.10 Cannabis abuse, uncomplicated; Z91.15 Patient's noncompliance with renal dialysis; Z85.01 Personal history of malignant neoplasm of esophagus; Z86.73 Personal history of transient ischemic attack (TIA), and cerebral infarction without residual deficits; Z99.2 Dependence on renal dialysis; Z90.49 Acquired absence of other specified parts of digestive tract; Z82.49 Family history of ischemic heart disease and other diseases of the circulatory system; Z71.6 Tobacco abuse counseling; Z83.3 Family history of diabetes mellitus; Z82.3 Family history of stroke; Y93.89 Activity, other specified; Y92.89 Other specified places as the place of occurrence of the external cause; Y99.8 Other external cause status

== ENCOUNTER → 2017-07-22 | Outpatient (CLI) | payer OTHER ==
[~2017-07-22] MED LIST changes: +SIMVASTATIN40 MG PO; +VITAMIN D31000 UNIT PO
== END | disposition home or self-care (01) ==
LOC: RESCLI 07-15 02:08
DX: Z09 Encounter for follow-up examination after completed treatment for conditions other than malignant neoplasm (principal); I12.0 Hypertensive chronic kidney disease with stage 5 chronic kidney disease or end stage renal disease; N18.6 End stage renal disease; E78.5 Hyperlipidemia, unspecified; E55.9 Vitamin D deficiency, unspecified; G47.00 Insomnia, unspecified; F32.9 Major depressive disorder, single episode, unspecified; K27.9 Peptic ulcer, site unspecified, unspecified as acute or chronic, without hemorrhage or perforation; M79.2 Neuralgia and neuritis, unspecified; K59.00 Constipation, unspecified; E53.8 Deficiency of other specified B group vitamins; R29.6 Repeated falls; F19.90 Other psychoactive substance use, unspecified, uncomplicated; H93.13 Tinnitus, bilateral; N52.9 Male erectile dysfunction, unspecified; Z99.2 Dependence on renal dialysis; Z72.0 Tobacco use; Z86.19 Personal history of other infectious and parasitic diseases

== ENCOUNTER → 2017-08-20 | Outpatient (CLI) | payer OTHER ==
[2017-08-20 08:39] LABS: BASO # 0.1 10*3/uL (0.0-0.1); BASO % 1.1 % (0.0-1.0); EOS # 0.2 10*3/uL (0.0-0.4); EOS % 3.8 % (1.0-4.0); HEMATOCRIT 36.1 % (42.0-52.0); HEMOGLOBIN 12.7 g/dl (14.0-18.0); LYMPH # 1.1 10*3/uL (1.3-4.4); LYMPH % 20.4 % (27.0-41.0); MEAN CELL VOLUME 84.7 fl (80.0-94.0); MEAN CORPUSCULAR HGB 29.8 pg (27.0-31.0); MEAN CORPUSCULAR HGB CONC 35.2 g/dl (33.0-37.0); MEAN PLATELET VOLUME 11.5 fl (9.6-12.3); MONO # 0.6 10*3/uL (0.1-1.0); MONO % 10.4 % (3.0-9.0); NEUT # 3.6 10*3/uL (2.3-7.9); NEUT % 63.6 % (47.0-73.0); PLATELET COUNT AUTOMATED 173 10*3/uL (130-400); RED BLOOD COUNT 4.26 10*6/uL (4.50-5.90); RED CELL DISTRI WIDTH 15.3 % (0-14.5); WHITE BLOOD COUNT 5.6 10*3/uL (4.8-10.8)
== END | disposition home or self-care (01) ==
LOC: LAB 07:43
PROVIDERS: Internal Medicine Hematology & Oncology
DX: E53.8 Deficiency of other specified B group vitamins (principal); C76.0 Malignant neoplasm of head, face and neck

== ENCOUNTER → 2017-08-26 | Outpatient (CLI) | payer OTHER | END | disposition home or self-care (01) | LOC: RESCLI 02:18 | DX: I12.0 Hypertensive chronic kidney disease with stage 5 chronic kidney disease or end stage renal disease (principal); N18.6 End stage renal disease; E78.5 Hyperlipidemia, unspecified; E55.9 Vitamin D deficiency, unspecified; G47.00 Insomnia, unspecified; F32.9 Major depressive disorder, single episode, unspecified; K27.9 Peptic ulcer, site unspecified, unspecified as acute or chronic, without hemorrhage or perforation; M79.2 Neuralgia and neuritis, unspecified; K59.00 Constipation, unspecified; E53.8 Deficiency of other specified B group vitamins; R29.6 Repeated falls; F19.90 Other psychoactive substance use, unspecified, uncomplicated; H93.13 Tinnitus, bilateral; N52.9 Male erectile dysfunction, unspecified; R09.02 Hypoxemia; J44.9 Chronic obstructive pulmonary disease, unspecified; Z99.2 Dependence on renal dialysis; Z72.0 Tobacco use; Z90.49 Acquired absence of other specified parts of digestive tract ==

== ENCOUNTER → 2017-09-25 | Day surgery (SDC) | payer OTHER ==
[~2017-09-25] VITALS: Ht 170.1 cm; Wt 52.2 kg
--- NOTE | ~2017-09-25 | O ---
[place], [place] OPERATIVE NOTE NAME: TAYLOR HOLT [facility] UNIT #: [id number] ROOM: DOCTOR: NICOLAS JEAN MD BIRTHDATE: [birth year] DOS: 09/25/2017 GASTROENDOSCOPIC REPORT HISTORY OF PRESENT ILLNESS: A 62-year-old patient who has presented with chief complaint of anemia, history of esophageal CA, history of hepatitis C, dyspepsia, guaiac positivity. ALLERGIES: To no known medication. FAMILY HISTORY: Noncontributory. PAST SURGICAL HISTORY: Esophageal CA resection, status post chemoradiation, status post cholecystectomy, appendectomy, and splenectomy. PAST MEDICAL HISTORY: Hypertension, hyperlipidemia, depression, TIAs, GERD, hepatitis C, and esophageal CA. SOCIAL HISTORY: Active smoker, alcohol consumption 3 cans of beer daily. PROCEDURE: Today's procedure part of investigation is panendoscopy plus colonoscopy. PREMEDICATIONS: Versed and Diprivan. SCOPE: Olympus forward-viewing gastroscope Q10 video. REPORT: After putting the patient in left lateral position and application of lubricant to the scope, the scope was introduced. Thereafter, under direct visualization, advanced through the length of esophagus without difficulty. Diffuse distal esophageal ulcerations were identified. Biopsy and photographic series obtained. Gastric pouch was entered and appears there has been previous gastric surgery as well. Enteric site within normal limits. The patient was extubated, tolerated the procedure well. IMPRESSION: Diffuse distal esophageal ulcerations, long segment, approximately 5 cm; gastritis, status post esophageal ulcer biopsy and photographic series. PLAN AND DISCUSSION: The patient has been on omeprazole 40 mg daily. We are going to ask him to have a Carafate Slurry 1 gram 2 hours before meals as well. However, this patient has continued active smoking and active alcohol consumption and history of status post chemoradiation of esophagus and resection and ulcerations that makes it a complex issue for noncompliance and delayed healing and lack of response to healing. However, we will observe antireflux, Gaviscon as antacid of choice. Furthermore, we are going to proceed with colonoscopy today. [place], [place] OPERATIVE NOTE NAME: TAYLOR HOLT UNIT #: [id number] ROOM: DOCTOR: ROBYN JEAN MD BIRTHDATE: [birth year] NICOLAS JEAN MD CM:BJORNORD:OPERATIVE NOTE [id number] NICOLAS JEAN MD 09/25/17 1231 interface
--- NOTE | ~2017-09-25 | O ---
[place], [place] OPERATIVE NOTE [id number] UNIT #: [id number] ROOM: DOCTOR: NICOLAS JEAN MD BIRTHDATE: [birth year] DOS: 09/25/2017 GASTROENDOSCOPIC REPORT INDICATIONS: The patient has presented with chief complaint of epigastric abdominal pain, anemia, guaiac positivity. PROCEDURE: Today's procedure part of investigation is colonoscopy. PREMEDICATIONS: Versed and Diprivan. SCOPE: Olympus folding colonoscope 10L video. REPORT: After putting the patient in left lateral position and application of lubricant to the scope, the scope was introduced. Thereafter, under direct visualization, advanced through the length of colon without difficulty. Base of the cecum explored. Appendiceal orifice identified and ileocecal valve was defined. No acute pathology seen. The patient was extubated, tolerated the procedure well. IMPRESSION: Normal colonoscopic examination, some retained stool. PLAN AND DISCUSSION: Management of esophageal ulcer with therapy and the patient was advised, however, to abstain from smoking and active alcohol consumption. NICOLAS JEAN MD CM:OPRECORD:OPERATIVE NOTE 1202 1235 ISABEL JEAN MD 09/25/17 1235 interface
[2017-09-25 10:00] VITALS: BP 181/93
[2017-09-25 11:53] VITALS: BP 141/71
[2017-09-25 12:10] VITALS: BP 156/78
[2017-09-25 12:27] VITALS: BP 158/70
== END | disposition home or self-care (01) ==
LOC: SDC 09-22 10:15
DX: K22.10 Ulcer of esophagus without bleeding (principal); K29.70 Gastritis, unspecified, without bleeding; I10 Essential (primary) hypertension; E78.5 Hyperlipidemia, unspecified; F32.9 Major depressive disorder, single episode, unspecified; F17.210 Nicotine dependence, cigarettes, uncomplicated; K21.9 Gastro-esophageal reflux disease without esophagitis; Z86.73 Personal history of transient ischemic attack (TIA), and cerebral infarction without residual deficits; Z85.01 Personal history of malignant neoplasm of esophagus; Z86.19 Personal history of other infectious and parasitic diseases; Z98.890 Other specified postprocedural states; Z79.899 Other long term (current) drug therapy

== ENCOUNTER 2017-11-21 06:19 | Inpatient (IN) | payer OTHER ==
[~2017-11-21] VITALS: Ht 170.2 cm; Wt 51.4 kg
[2017-11-21] VITALS (7 sets, daily range): BP systolic 130–181; BP diastolic 69–93
[2017-11-21 07:04] LABS: HEMATOCRIT 32.2 % (42.0-52.0); HEMOGLOBIN 11.3 g/dl (14.0-18.0); MEAN CELL VOLUME 84.5 fl (80.0-94.0); MEAN CORPUSCULAR HGB 29.7 pg (27.0-31.0); MEAN CORPUSCULAR HGB CONC 35.1 g/dl (33.0-37.0); PLATELET COUNT AUTOMATED 114 10*3/uL (130-400); RED BLOOD COUNT 3.81 10*6/uL (4.50-5.90); RED CELL DISTRI WIDTH 18.1 % (0-14.5); WHITE BLOOD COUNT 10.7 10*3/uL (4.8-10.8)
[2017-11-21 07:21] LABS: ALBUMIN 2.5 gm/dl (3.1-4.5); ALKALINE PHOSPHATASE 109 U/L (45-117); BUN 16 mg/dl (7-24); CHLORIDE 86 mmol/L (98-107); CREATININE 3.14 mg/dL (0.70-1.30); POTASSIUM 3.9 mmol/L (3.5-5.1); SGOT/AST 26 IU/L (3-35); SGPT/ALT 11 U/L (12-78); SODIUM 121 mmol/L (136-145); TOTAL CELLS COUNTED 100 #CELLS
[2017-11-21 07:22] LABS: ACANTHOCYTES FEW; BURR CELLS FEW; POLYCHROMASIA SLIGHT; SCHISTOCYTES FEW; TARGET CELLS FEW
[2017-11-21 07:23] LABS: PLATELET SUFFICIENCY LOW (NORMAL)
[2017-11-21 07:24] LABS: ACETAMINOPHEN (TYLENOL) < 2.0 ug/ml (10-30)
[2017-11-21 09:22] LABS: BILIRUBIN NEGATIVE (NEGATIVE); BLOOD NEGATIVE (NEGATIVE); CLARITY CLEAR (CLEAR); COLOR YELLOW (YELLOW); GLUCOSE NEGATIVE (NEGATIVE); KETONE NEGATIVE (NEGATIVE); LEUKO ESTERASE NEGATIVE (NEGATIVE); NITRITE NEGATIVE (NEGATIVE); SPECIFIC GRAVITY <= 1.005 (1.005-1.030); UROBILINOGEN 0.2 E.U./dl (0.2-1.0)
[2017-11-21 09:31] LABS: URINE AMPHETAMINES < 1000 (1000ng/ml); URINE BARBITURATES < 200 (200ng/ml); URINE BENZODIAZEPINES < 200 (200ng/ml); URINE CANNABINOIDS (THC) > 50 (50ng/ml); URINE COCAINE > 300 (300ng/ml); URINE METHADONE < 300 (300ng/ml); URINE OPIATES < 300 (300ng/ml)
[2017-11-21 09:32] LABS: URINE PHENCYCLIDINE < 25 (25ng/ml)
[2017-11-21 09:37] LABS: EPITHELIAL CELLS 0-2
[2017-11-21] MEDS ORDERED: CLONIDINE HCL0.1 MG PO (09:55)
[2017-11-22] VITALS: BP 120/57
[2017-11-22 06:49] LABS: BASO # 0.1 10*3/uL (0.0-0.1); BASO % 1.3 % (0.0-1.0); EOS # 0.1 10*3/uL (0.0-0.4); EOS % 1.5 % (1.0-4.0); HEMATOCRIT 30.2 % (42.0-52.0); HEMOGLOBIN 10.6 g/dl (14.0-18.0); LYMPH # 0.9 10*3/uL (1.3-4.4); LYMPH % 16.2 % (27.0-41.0); MEAN CELL VOLUME 84.4 fl (80.0-94.0); MEAN CORPUSCULAR HGB 29.6 pg (27.0-31.0); MEAN CORPUSCULAR HGB CONC 35.1 g/dl (33.0-37.0); MONO # 0.4 10*3/uL (0.1-1.0); MONO % 6.7 % (3.0-9.0); NEUT % 73.7 % (47.0-73.0); PLATELET COUNT AUTOMATED 103 10*3/uL (130-400); RED BLOOD COUNT 3.58 10*6/uL (4.50-5.90); RED CELL DISTRI WIDTH 18.1 % (0-14.5); WHITE BLOOD COUNT 5.4 10*3/uL (4.8-10.8)
[2017-11-22 06:59] LABS: CREATININE 2.17 mg/dL (0.70-1.30); PHOSPHOROUS 2.7 mg/dL (2.5-4.9); POTASSIUM 3.4 mmol/L (3.5-5.1)
[2017-11-22 07:06] LABS: THYROID STIM HORMONE (HS) 6.9 uIU/ml (0.358-4.75)
[2017-11-22 07:11] LABS: TOTAL CELLS COUNTED 100 #CELLS
[2017-11-22 07:12] LABS: ACANTHOCYTES FEW; BURR CELLS MODERATE; POLYCHROMASIA SLIGHT; SCHISTOCYTES FEW; TARGET CELLS FEW
[2017-11-22 07:13] LABS: PLATELET SUFFICIENCY LOW (NORMAL)
[2017-11-22 07:26] LABS: VITAMIN D, 25-HYDROXY 22.4 ng/mL (30-100)
[2017-11-22 08:00] VITALS: BP 161/81
[2017-11-22 12:00] VITALS: BP 136/67
[2017-11-22 16:00] VITALS: BP 130/52
[2017-11-22 20:00] VITALS: BP 134/67
[2017-11-23] VITALS: BP 159/78
[2017-11-23 06:46] LABS: ALBUMIN 2.2 gm/dl (3.1-4.5); CREATININE 2.74 mg/dL (0.70-1.30); POTASSIUM 4.2 mmol/L (3.5-5.1)
[2017-11-23 06:47] LABS: PHOSPHOROUS 3.1 mg/dL (2.5-4.9)
[2017-11-23 08:00] VITALS: BP 148/70
[2017-11-23 12:00] VITALS: BP 165/89
[2017-11-23 16:00] VITALS: BP 154/70
[2017-11-23 20:00] VITALS: BP 146/68
[2017-11-24] VITALS: BP 148/73
[2017-11-24 06:50] LABS: ALBUMIN 2.4 gm/dl (3.1-4.5); CREATININE 3.17 mg/dL (0.70-1.30); PHOSPHOROUS 3.4 mg/dL (2.5-4.9); POTASSIUM 4.1 mmol/L (3.5-5.1)
[2017-11-24 08:00] VITALS: BP 154/78
[2017-11-24 12:00] VITALS: BP 169/77
[2017-11-24 16:00] VITALS: BP 145/70
[2017-11-24 20:00] VITALS: BP 137/70
[2017-11-25] VITALS: BP 147/77
[2017-11-25 06:55] LABS: CREATININE 2.2 mg/dL (0.70-1.30); POTASSIUM 3.9 mmol/L (3.5-5.1)
[2017-11-25 08:00] VITALS: BP 159/85
[2017-11-25] MEDS ORDERED: Vitamin D PO (10:14)
== END 2017-11-25 14:01 | disposition home or self-care (01) | DRG 291 ==
LOC: ED 06:19 → EDHOLD 07:58 → 5E 07:58 → ICCU 08:10 → 5E 17:14
PROVIDERS: Emergency Medicine Emergency Medical Services; Family Medicine; Student in an Organized Health Care Education/Training Program
PROC: 5A1D70Z Performance of Urinary Filtration, Intermittent, Less than 6 Hours Per Day (ICD-10-PCS; principal; 2017-11-21)
PROC: 5A1D70Z Performance of Urinary Filtration, Intermittent, Less than 6 Hours Per Day (ICD-10-PCS; 2017-11-24)
DX: I13.2 Hypertensive heart and chronic kidney disease with heart failure and with stage 5 chronic kidney disease, or end stage renal disease (principal); E43 Unspecified severe protein-calorie malnutrition; G93.41 Metabolic encephalopathy; D69.6 Thrombocytopenia, unspecified; E87.8 Other disorders of electrolyte and fluid balance, not elsewhere classified; N18.6 End stage renal disease; E87.1 Hypo-osmolality and hyponatremia; I50.9 Heart failure, unspecified; D72.810 Lymphocytopenia; R80.9 Proteinuria, unspecified; D63.1 Anemia in chronic kidney disease; E78.2 Mixed hyperlipidemia; F10.20 Alcohol dependence, uncomplicated; R27.0 Ataxia, unspecified; K27.9 Peptic ulcer, site unspecified, unspecified as acute or chronic, without hemorrhage or perforation; W18.30XA Fall on same level, unspecified, initial encounter; Y90.9 Presence of alcohol in blood, level not specified; F32.9 Major depressive disorder, single episode, unspecified; E55.9 Vitamin D deficiency, unspecified; F17.210 Nicotine dependence, cigarettes, uncomplicated; M50.30 Other cervical disc degeneration, unspecified cervical region; F12.10 Cannabis abuse, uncomplicated; Z86.73 Personal history of transient ischemic attack (TIA), and cerebral infarction without residual deficits; Z90.49 Acquired absence of other specified parts of digestive tract; Z90.3 Acquired absence of stomach [part of]; Z82.49 Family history of ischemic heart disease and other diseases of the circulatory system; Z71.6 Tobacco abuse counseling; Z99.2 Dependence on renal dialysis; Z83.3 Family history of diabetes mellitus; Y93.89 Activity, other specified; Y92.098 Other place in other non-institutional residence as the place of occurrence of the external cause; Y99.8 Other external cause status; Z91.19 Patient's noncompliance with other medical treatment and regimen; Z68.21 Body mass index [BMI] 21.0-21.9, adult

== ENCOUNTER → 2017-12-30 | Outpatient (CLI) | payer OTHER ==
[~2017-12-30] MED LIST changes: +CLONIDINE HCL0.1 MG PO; +Vitamin D PO
== END | disposition home or self-care (01) ==
LOC: RESCLI 03:04
DX: I12.0 Hypertensive chronic kidney disease with stage 5 chronic kidney disease or end stage renal disease (principal); N18.6 End stage renal disease; E78.5 Hyperlipidemia, unspecified; F32.9 Major depressive disorder, single episode, unspecified; K27.9 Peptic ulcer, site unspecified, unspecified as acute or chronic, without hemorrhage or perforation; G47.00 Insomnia, unspecified; F17.210 Nicotine dependence, cigarettes, uncomplicated; Z90.49 Acquired absence of other specified parts of digestive tract; Z99.2 Dependence on renal dialysis

== ENCOUNTER → 2018-02-05 | Outpatient (CLI) | payer OTHER ==
[~2018-02-05] MED LIST changes: +Carafate1 GM/10 ML PO
== END | disposition home or self-care (01) ==
LOC: RESCLI 02:26
DX: I16.0 Hypertensive urgency (principal); J96.11 Chronic respiratory failure with hypoxia; R00.1 Bradycardia, unspecified; Z53.20 Procedure and treatment not carried out because of patient's decision for unspecified reasons; Z79.899 Other long term (current) drug therapy; Z90.49 Acquired absence of other specified parts of digestive tract; Z87.891 Personal history of nicotine dependence

== ENCOUNTER 2018-02-11 14:22 | Emergency (ER) | payer OTHER ==
[~2018-02-11] VITALS: Ht 170.1 cm; Wt 52.2 kg
--- NOTE | ~2018-02-11 | EKG ---
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
[2018-02-11 14:24] VITALS: BP 131/73
[2018-02-11 14:44] LABS: BASO # 0.1 10*3/uL (0.0-0.1); BASO % 0.9 % (0.0-1.0); EOS # 0.2 10*3/uL (0.0-0.4); EOS % 2.6 % (1.0-4.0); HEMATOCRIT 35.8 % (42.0-52.0); HEMOGLOBIN 12.5 g/dl (14.0-18.0); LYMPH # 2.2 10*3/uL (1.3-4.4); LYMPH % 28.2 % (27.0-41.0); MEAN CELL VOLUME 84.8 fl (80.0-94.0); MEAN CORPUSCULAR HGB 29.6 pg (27.0-31.0); MEAN CORPUSCULAR HGB CONC 34.9 g/dl (33.0-37.0); MEAN PLATELET VOLUME 11.4 fl (9.6-12.3); MONO # 0.5 10*3/uL (0.1-1.0); MONO % 6.1 % (3.0-9.0); NEUT # 4.8 10*3/uL (2.3-7.9); NEUT % 61.8 % (47.0-73.0); NUCLEATED RED BLOOD CELL 0.3 % (0.0-0.0); PLATELET COUNT AUTOMATED 116 10*3/uL (130-400); RED BLOOD COUNT 4.22 10*6/uL (4.50-5.90); RED CELL DISTRI WIDTH 16.1 % (0-14.5); WHITE BLOOD COUNT 7.7 10*3/uL (4.8-10.8)
[2018-02-11 15:00] LABS: ALBUMIN 2.6 gm/dl (3.1-4.5); ALKALINE PHOSPHATASE 119 U/L (45-117); BUN 9 mg/dl (7-24); CHLORIDE 85 mmol/L (98-107); CREATININE 2.44 mg/dL (0.70-1.30); POTASSIUM 3.9 mmol/L (3.5-5.1); SGOT/AST 19 IU/L (3-35); SGPT/ALT 10 U/L (12-78); SODIUM 122 mmol/L (136-145); TOTAL PROTEIN 6.7 gm/dL (6.4-8.2)
[2018-02-11 15:01] LABS: TROPONIN I < 0.015 ng/ml (<0.045)
== END 2018-02-11 16:05 | disposition left against medical advice (07) ==
LOC: ED 14:22
PROVIDERS: Internal Medicine
DX: J96.91 Respiratory failure, unspecified with hypoxia (principal); E87.1 Hypo-osmolality and hyponatremia; I13.0 Hypertensive heart and chronic kidney disease with heart failure and stage 1 through stage 4 chronic kidney disease, or unspecified chronic kidney disease; N18.3 Chronic kidney disease, stage 3 (moderate); I50.30 Unspecified diastolic (congestive) heart failure; E78.2 Mixed hyperlipidemia; M50.30 Other cervical disc degeneration, unspecified cervical region; F17.200 Nicotine dependence, unspecified, uncomplicated; Z79.899 Other long term (current) drug therapy; Z86.73 Personal history of transient ischemic attack (TIA), and cerebral infarction without residual deficits

== ENCOUNTER 2018-03-10 15:44 | Inpatient (IN) | payer OTHER ==
[~2018-03-10] VITALS: Ht 170.1 cm; Wt 49.0 kg
--- NOTE | ~2018-03-10 | EKG ---
[place], [place] ELECTROCARDIOGRAM REPORT NAME: TAYLOR HOLT UNIT #: [id number] ROOM: 519 DOCTOR: NICOLETTE DRAFT REPORT BIRTHDATE: [address] 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
--- NOTE | ~2018-03-10 | PR ---
[place], [place] PROGRESS NOTE NAME: TAYLOR HOLT UNIT #: [id number] ROOM: 519 DOCTOR: CHRISTIAN ESTRADA,SPEEDY Tomas BIRTHDATE: [birth year] DOS: 03/14/2018 NEPHROLOGY FOLLOWUP NOTE SUBJECTIVE: The patient was seen and examined. He is awake and alert. Denies shortness of breath, nausea, vomiting. He is very upset that he is on fluid restriction. I was called by the nurse earlier and stated it would be okay to lift his fluid restriction of 2 L per day. PHYSICAL EXAMINATION: VITAL SIGNS: Showed temperature 98.8, pulse 71, respiratory rate 18, blood pressure 163/77. HEENT: Shows no JVD. LUNGS: Diminished breath sounds with no wheeze. HEART: S1, S2. ABDOMEN: Soft, nontender. EXTREMITIES: Showed no edema. LABORATORY DATA: Not drawn today. From yesterday, sodium 129, potassium 3.9, CO2 28, BUN 20, creatinine 2.8. ASSESSMENT AND PLAN: 1. End-stage renal disease, on hemodialysis Thursday, , and Thursday. 2. Dialysis planned for Thursday. Continue to slowly correct hyponatremia with dialysis. Fluid restriction can be increased to 2 L per day. Also, increase protein in the diet. 3. Anemia. H and H at target. We will give as needed erythropoietin stimulating agents. 4. Hypertension. Continue medications and adjust as needed. 5. Hyperphosphatemia. Continue phosphorus binders. 6. Malnutrition. Maximize nutrition. SPEEDY GONZALES MD CM:PNTRANS 24 8 SPEEDY GONZALES MD 03/15/187 interface
--- NOTE | ~2018-03-10 | PR ---
[place], [place] PROGRESS NOTE NAME: TAYLOR HOLT UNIT #: [id number] ROOM: 519 DOCTOR: CHRISTIAN ESTRADA,SPEEDY Tomas BIRTHDATE: [birth year] DOS: 03/13/2018 SUBJECTIVE: The patient was seen and examined. He is awake and alert. Denies shortness of breath, fevers, chills or night sweats. He was eating his lunch. He states he had dialysis this morning and had no difficulties. PHYSICAL EXAMINATION: VITAL SIGNS: Temperature 98, pulse 64, respiration rate 16, blood pressure 185/80. HEENT: Shows no JVD. LUNGS: Diminished breath sounds without wheeze. HEART: S1, S2. No rub. ABDOMEN: Soft, nontender. EXTREMITIES: Showed no edema. LABORATORY DATA: BUN 20, creatinine 2.8. Sodium 129, potassium 3.9, CO2 of 28, calcium of 8.2. ASSESSMENT AND PLAN: 1. End-stage renal disease, on hemodialysis Thursday, , and Thursday. Next dialysis will be on Thursday. Hyponatremia will be corrected slowly with dialysis. Continue an oral fluid restriction. Increase protein. 2. Anemia. H and H is at target. As needed erythropoietin stimulating agents. 3. Hypertension. Continue medications and adjust meds appropriately for better blood pressure control. 5. Hyperphosphatemia. Continue phosphorus binders. 6. Malnutrition. Maximize nutrition and increase protein. SPEEDY GONZALES MD CM:PNTRANS 1341 [id number] SPEEDY GONZALES MD 03/13/18 1645 interface
[2018-03-10 15:44] VITALS: BP 105/67
[~2018-03-10 15:44] MED LIST changes: +METOCLOPRAMIDE H5 M1 PO
[2018-03-10 16:36] VITALS: BP 119/74
[2018-03-10 16:51] LABS: BASO # 0.1 10*3/uL (0.0-0.1); EOS # 0.1 10*3/uL (0.0-0.4); EOS % 1.4 % (1.0-4.0); HEMATOCRIT 31.7 % (42.0-52.0); HEMOGLOBIN 11.2 g/dl (14.0-18.0); LYMPH # 1.8 10*3/uL (1.3-4.4); LYMPH % 28.6 % (27.0-41.0); MEAN CORPUSCULAR HGB CONC 35.3 g/dl (33.0-37.0); MEAN PLATELET VOLUME 11.1 fl (9.6-12.3); MONO # 0.7 10*3/uL (0.1-1.0); MONO % 11.4 % (3.0-9.0); NEUT # 3.6 10*3/uL (2.3-7.9); NEUT % 56.1 % (47.0-73.0); PLATELET COUNT AUTOMATED 181 10*3/uL (130-400); RED BLOOD COUNT 3.73 10*6/uL (4.50-5.90); RED CELL DISTRI WIDTH 16.7 % (0-14.5); WHITE BLOOD COUNT 6.4 10*3/uL (4.8-10.8)
[2018-03-10 17:08] LABS: POTASSIUM 3.4 mmol/L (3.5-5.1); TOTAL PROTEIN 5.7 gm/dL (6.4-8.2)
[2018-03-10 17:09] LABS: TROPONIN I 0.017 ng/ml (<0.045)
[2018-03-10 17:16] VITALS: BP 134/78
[2018-03-10 18:30] VITALS: BP 144/87
[2018-03-10 19:30] VITALS: BP 170/90
[2018-03-11] VITALS: BP 152/71
[2018-03-11 06:19] LABS: BASO # 0.1 10*3/uL (0.0-0.1); BASO % 1.3 % (0.0-1.0); EOS # 0.2 10*3/uL (0.0-0.4); EOS % 1.9 % (1.0-4.0); HEMATOCRIT 34.2 % (42.0-52.0); HEMOGLOBIN 11.9 g/dl (14.0-18.0); LYMPH # 1.4 10*3/uL (1.3-4.4); LYMPH % 18.2 % (27.0-41.0); MEAN CORPUSCULAR HGB 29.2 pg (27.0-31.0); MEAN CORPUSCULAR HGB CONC 34.8 g/dl (33.0-37.0); MEAN PLATELET VOLUME 11.8 fl (9.6-12.3); MONO # 0.8 10*3/uL (0.1-1.0); MONO % 9.7 % (3.0-9.0); NEUT # 5.3 10*3/uL (2.3-7.9); NEUT % 68.4 % (47.0-73.0); PLATELET COUNT AUTOMATED 191 10*3/uL (130-400); RED BLOOD COUNT 4.07 10*6/uL (4.50-5.90); RED CELL DISTRI WIDTH 16.6 % (0-14.5); WHITE BLOOD COUNT 7.8 10*3/uL (4.8-10.8)
[2018-03-11 06:53] LABS: ALBUMIN 2.1 gm/dl (3.1-4.5); CREATININE 2.26 mg/dL (0.70-1.30); PHOSPHOROUS 3.2 mg/dL (2.5-4.9); TOTAL PROTEIN 6.1 gm/dL (6.4-8.2)
[2018-03-11 08:00] VITALS: BP 162/83
[2018-03-11 12:00] VITALS: BP 171/90; BP 197/82
[2018-03-11 16:00] VITALS: BP 135/70
[2018-03-11 20:00] VITALS: BP 150/72
[2018-03-12] VITALS: BP 128/69
[2018-03-12 06:39] LABS: BASO # 0.1 10*3/uL (0.0-0.1); BASO % 1.6 % (0.0-1.0); EOS # 0.1 10*3/uL (0.0-0.4); EOS % 2.3 % (1.0-4.0); HEMATOCRIT 32.2 % (42.0-52.0); LYMPH # 1.8 10*3/uL (1.3-4.4); LYMPH % 28.8 % (27.0-41.0); MEAN CELL VOLUME 86.3 fl (80.0-94.0); MEAN CORPUSCULAR HGB 29.5 pg (27.0-31.0); MEAN CORPUSCULAR HGB CONC 34.2 g/dl (33.0-37.0); MEAN PLATELET VOLUME 12.5 fl (9.6-12.3); MONO # 0.7 10*3/uL (0.1-1.0); MONO % 11.3 % (3.0-9.0); NEUT # 3.4 10*3/uL (2.3-7.9); NEUT % 55.5 % (47.0-73.0); PLATELET COUNT AUTOMATED 162 10*3/uL (130-400); RED BLOOD COUNT 3.73 10*6/uL (4.50-5.90); RED CELL DISTRI WIDTH 17.5 % (0-14.5); WHITE BLOOD COUNT 6.1 10*3/uL (4.8-10.8)
[2018-03-12 06:54] LABS: ALBUMIN 2.3 gm/dl (3.1-4.5); POTASSIUM 3.9 mmol/L (3.5-5.1)
[2018-03-12 06:55] LABS: CREATININE 2.07 mg/dL (0.70-1.30); PHOSPHOROUS 2.8 mg/dL (2.5-4.9)
[2018-03-12 08:00] VITALS: BP 175/85
[2018-03-12 08:30] VITALS: BP 160/70
[2018-03-12 16:00] VITALS: BP 164/74
[2018-03-12 20:00] VITALS: BP 158/74
[2018-03-13] VITALS: BP 160/79
[2018-03-13 07:17] LABS: CREATININE 2.83 mg/dL (0.70-1.30); POTASSIUM 3.9 mmol/L (3.5-5.1)
[2018-03-13 12:00] VITALS: BP 185/80
[2018-03-13 16:00] VITALS: BP 137/63
[2018-03-13 20:00] VITALS: BP 165/75
[2018-03-14] VITALS: BP 151/73
[2018-03-14 08:00] VITALS: BP 158/82
[2018-03-14 12:00] VITALS: BP 150/64
[2018-03-14 16:00] VITALS: BP 163/77
[2018-03-14 20:00] VITALS: BP 171/84
[2018-03-15] VITALS: BP 172/80
[2018-03-15 08:00] VITALS: BP 179/76
[2018-03-15 12:00] VITALS: BP 149/70
[2018-04-26] MEDS ORDERED: NATURE'S BLEND F1 MG PO (09:23)
[2018-04-26] MEDS ORDERED: NEURONTIN100 MG PO (09:24)
[2018-04-26] MEDS ORDERED: TRAZODONE100 MG PO (09:25)
[2018-04-26] MEDS ORDERED: PRILOSEC20 M1 PO (09:26)
[2018-04-26] MEDS ORDERED: LIPITOR20 MG PO (09:27)
[2018-05-03] MEDS ORDERED: HYDROCODONE AC PO (18:25)
== END 2018-03-15 17:20 | disposition left against medical advice (07) | DRG 640 ==
LOC: ED 15:44 → 5E 17:55 → EDHOLD 17:55 → 5E 18:34
PROVIDERS: Internal Medicine; Physician Assistant; Student in an Organized Health Care Education/Training Program
PROC: 5A1D70Z Performance of Urinary Filtration, Intermittent, Less than 6 Hours Per Day (ICD-10-PCS; principal; 2018-03-11)
DX: E87.1 Hypo-osmolality and hyponatremia (principal); E43 Unspecified severe protein-calorie malnutrition; N18.6 End stage renal disease; I50.32 Chronic diastolic (congestive) heart failure; I13.2 Hypertensive heart and chronic kidney disease with heart failure and with stage 5 chronic kidney disease, or end stage renal disease; R29.6 Repeated falls; M50.322 Other cervical disc degeneration at C5-C6 level; E87.8 Other disorders of electrolyte and fluid balance, not elsewhere classified; R79.89 Other specified abnormal findings of blood chemistry; K29.00 Acute gastritis without bleeding; D63.1 Anemia in chronic kidney disease; E78.2 Mixed hyperlipidemia; F32.9 Major depressive disorder, single episode, unspecified; F10.10 Alcohol abuse, uncomplicated; F12.10 Cannabis abuse, uncomplicated; M19.90 Unspecified osteoarthritis, unspecified site; Z53.21 Procedure and treatment not carried out due to patient leaving prior to being seen by health care provider; F19.10 Other psychoactive substance abuse, uncomplicated; F14.10 Cocaine abuse, uncomplicated; E55.9 Vitamin D deficiency, unspecified; Z99.81 Dependence on supplemental oxygen; Z72.0 Tobacco use; Z99.2 Dependence on renal dialysis; Z85.01 Personal history of malignant neoplasm of esophagus; Z86.73 Personal history of transient ischemic attack (TIA), and cerebral infarction without residual deficits; Z87.11 Personal history of peptic ulcer disease; Z90.49 Acquired absence of other specified parts of digestive tract; Z90.81 Acquired absence of spleen; Z82.49 Family history of ischemic heart disease and other diseases of the circulatory system; Z83.3 Family history of diabetes mellitus; Z79.899 Other long term (current) drug therapy; Z68.20 Body mass index [BMI] 20.0-20.9, adult; Z82.3 Family history of stroke

== ENCOUNTER 2018-03-24 14:06 | Inpatient (IN) | payer OTHER ==
[~2018-03-24] VITALS: Ht 170.1 cm; Wt 45.9 kg
[2018-03-24] VITALS (8 sets, daily range): BP systolic 107–167; BP diastolic 62–83
--- NOTE | ~2018-03-24 | PR ---
[place], [place] PROGRESS NOTE [id number] UNIT #: [id number] ROOM: 410 DOCTOR: SPEEDY GONZALES MD BIRTHDATE: [birth year] DOS: 03/27/2018 SUBJECTIVE: The patient was seen and examined. He is awake and alert. Denies chest pain. He does admit some shortness of breath. He was on room air. He is in no acute distress. PHYSICAL EXAMINATION: VITAL SIGNS: Temperature 97, pulse 66, respiration rate 18, and blood pressure 140/72. HEENT: Shows positive JVD. LUNGS: Diminished breath sounds with no wheeze. HEART: S1, S2. No rub. ABDOMEN: Soft, nontender. EXTREMITIES: Had no edema. LABORATORY DATA: Hemoglobin 11.4, white count of 8.1, and platelets 167. BUN 27, creatinine 3.3, sodium 132, potassium 3.7, CO2 of 28, calcium 8.4, phosphorus 2.8, and albumin 2.4. Blood cultures from the showed no growth. ASSESSMENT AND PLAN: 1. End-stage renal disease, on hemodialysis, Thursday, and Thursday. The patient will have dialysis today. 2. Anemia. We will give as needed, erythropoietin stimulating agents with dialysis. Currently, H and H is at target. 3. Hyponatremia. Continue fluid restriction. Correct with dialysis. This is somewhat of a chronic problem. 4. Hypoalbuminemia/malnutrition. Encourage p.o. intake. Await disposition. SPEEDY GONZALES MD CM:PNTRANS 27 37 SPEEDY GONZALES MD 03/27/182135 interface
--- NOTE | ~2018-03-24 | PR ---
[place], [place] PROGRESS NOTE NAME: TAYLOR HOLT UNIT #: [id number] ROOM: 410 DOCTOR: SPEEDY GONZALES MD BIRTHDATE: [birth year] DOS: NEPHROLOGY FOLLOWUP NOTE SUBJECTIVE: The patient was seen and examined. He is awake and alert. He denies any shortness of breath, fevers or chills. He was on room air. He had dialysis push today due to scheduling issues and tolerated treatment without any problems. PHYSICAL EXAMINATION: VITAL SIGNS: Temperature 99.2, pulse 61, respiration rate 18, and blood pressure 140/73. HEENT: Shows positive JVD. Mucous membranes are moist. Sclerae are anicteric. LUNGS: Diminished breath sounds with no wheeze. HEART: S1, S2. No rub, thrill or gallop. ABDOMEN: Soft, nontender. There is no organomegaly. EXTREMITIES: He had no edema. LABORATORY DATA: Hemoglobin 11.6, white count of 8.6, platelets 197. BUN 32, creatinine 3.9, sodium 130, potassium 4.2, CO2 of 27, phosphorus 3.5, and albumin 2.5. ASSESSMENT AND PLAN: 1. End-stage renal disease, on hemodialysis Thursday, and Thursday. The patient's next dialysis will be on Thursday. 2. Anemia. We will give as needed ESAs with dialysis. Currently, H and H are at target. 3. Hyponatremia. Continue fluid restriction and we will correct sodium with dialysis. This is somewhat of a chronic problem. 4. Hypoalbuminemia/malnutrition. Encourage increasing protein, increasing oral intake. DISPOSITION: Pending. [place], [place] PROGRESS NOTE NAME: TAYLOR HOLT UNIT #: [id number] ROOM: 410 DOCTOR: SPEEDY GONZALES MD BIRTHDATE: [birth year] SPEEDY GONZALES MD CM:PNTRANS 49 13 SPEEDY GONZALES MD 03/28/18 438 interface
--- NOTE | ~2018-03-24 | EKG ---
[place], [place] ELECTROCARDIOGRAM REPORT NAME: TAYLOR HOLT UNIT #: [id number] ROOM: 410 DOCTOR: NICOLETTE DRAFT REPORT BIRTHDATE: [address] 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
[2018-03-24 15:31] LABS: BASO # 0.1 10*3/uL (0.0-0.1); BASO % 0.4 % (0.0-1.0); EOS # 0.1 10*3/uL (0.0-0.4); EOS % 0.7 % (1.0-4.0); HEMATOCRIT 36.8 % (42.0-52.0); HEMOGLOBIN 12.7 g/dl (14.0-18.0); LYMPH # 2.1 10*3/uL (1.3-4.4); LYMPH % 15.2 % (27.0-41.0); MEAN CELL VOLUME 87.6 fl (80.0-94.0); MEAN CORPUSCULAR HGB 30.2 pg (27.0-31.0); MEAN CORPUSCULAR HGB CONC 34.5 g/dl (33.0-37.0); MEAN PLATELET VOLUME 12.4 fl (9.6-12.3); MONO # 0.5 10*3/uL (0.1-1.0); MONO % 3.9 % (3.0-9.0); NEUT # 10.8 10*3/uL (2.3-7.9); NEUT % 79.3 % (47.0-73.0); PLATELET COUNT AUTOMATED 175 10*3/uL (130-400); WHITE BLOOD COUNT 13.6 10*3/uL (4.8-10.8)
[2018-03-24 15:39] LABS: ACT PARTIAL THROMBO TIME 28.7 SECONDS (20.8-31.5)
[2018-03-24 15:48] LABS: ALBUMIN 2.7 gm/dl (3.1-4.5); ALKALINE PHOSPHATASE 103 U/L (45-117); BUN 13 mg/dl (7-24); CHLORIDE 87 mmol/L (98-107); CREATININE 2.75 mg/dL (0.70-1.30); LIPASE 47 U/L (73-393); POTASSIUM 3.7 mmol/L (3.5-5.1); SGOT/AST 22 IU/L (3-35); SGPT/ALT 13 U/L (12-78); SODIUM 126 mmol/L (136-145); TOTAL PROTEIN 7.2 gm/dL (6.4-8.2)
[2018-03-24 15:50] LABS: TROPONIN I < 0.015 ng/ml (<0.045)
[2018-03-24 17:54] LABS: BILIRUBIN NEGATIVE (NEGATIVE); BLOOD NEGATIVE (NEGATIVE); CLARITY CLEAR (CLEAR); COLOR YELLOW (YELLOW); GLUCOSE NEGATIVE (NEGATIVE); KETONE NEGATIVE (NEGATIVE); LEUKO ESTERASE NEGATIVE (NEGATIVE); NITRITE NEGATIVE (NEGATIVE); UROBILINOGEN 0.2 E.U./dl (0.2-1.0)
[2018-03-24 18:05] LABS: WBC 0-2 wbc/hpf (0-5)
[2018-03-24 18:06] LABS: MUCOUS TRACE
[2018-03-25] VITALS: BP 159/85
[2018-03-25 06:16] LABS: BASO # 0.1 10*3/uL (0.0-0.1); BASO % 1.3 % (0.0-1.0); EOS # 0.2 10*3/uL (0.0-0.4); EOS % 2.3 % (1.0-4.0); HEMATOCRIT 35.4 % (42.0-52.0); HEMOGLOBIN 12.3 g/dl (14.0-18.0); LYMPH # 1.7 10*3/uL (1.3-4.4); LYMPH % 18.4 % (27.0-41.0); MEAN CELL VOLUME 86.6 fl (80.0-94.0); MEAN CORPUSCULAR HGB 30.1 pg (27.0-31.0); MEAN CORPUSCULAR HGB CONC 34.7 g/dl (33.0-37.0); MEAN PLATELET VOLUME 12.3 fl (9.6-12.3); MONO # 0.6 10*3/uL (0.1-1.0); MONO % 7.1 % (3.0-9.0); NEUT # 6.4 10*3/uL (2.3-7.9); NEUT % 70.6 % (47.0-73.0); PLATELET COUNT AUTOMATED 167 10*3/uL (130-400); RED BLOOD COUNT 4.09 10*6/uL (4.50-5.90); RED CELL DISTRI WIDTH 16.7 % (0-14.5)
[2018-03-25 06:38] LABS: CREATININE 3.08 mg/dL (0.70-1.30); PHOSPHOROUS 4.4 mg/dL (2.5-4.9); POTASSIUM 4.1 mmol/L (3.5-5.1)
[2018-03-25 06:45] LABS: THYROID STIM HORMONE (HS) 1.94 uIU/ml (0.358-4.75)
[2018-03-25 07:44] LABS: VITAMIN D, 25-HYDROXY 36.8 ng/mL (30-100)
[2018-03-25 08:00] VITALS: BP 175/93
[2018-03-25 13:30] LABS: BASO # 0.1 10*3/uL (0.0-0.1); BASO % 0.9 % (0.0-1.0); EOS # 0.2 10*3/uL (0.0-0.4); EOS % 1.6 % (1.0-4.0); HEMATOCRIT 38.5 % (42.0-52.0); HEMOGLOBIN 13.3 g/dl (14.0-18.0); LYMPH # 1.4 10*3/uL (1.3-4.4); LYMPH % 14.9 % (27.0-41.0); MEAN CELL VOLUME 87.1 fl (80.0-94.0); MEAN CORPUSCULAR HGB 30.1 pg (27.0-31.0); MEAN CORPUSCULAR HGB CONC 34.5 g/dl (33.0-37.0); MEAN PLATELET VOLUME 11.7 fl (9.6-12.3); MONO # 0.7 10*3/uL (0.1-1.0); MONO % 7.2 % (3.0-9.0); NEUT # 6.8 10*3/uL (2.3-7.9); NEUT % 75.2 % (47.0-73.0); PLATELET COUNT AUTOMATED 154 10*3/uL (130-400); RED BLOOD COUNT 4.42 10*6/uL (4.50-5.90); RED CELL DISTRI WIDTH 17.1 % (0-14.5); WHITE BLOOD COUNT 9.1 10*3/uL (4.8-10.8)
[2018-03-25 13:40] LABS: ALBUMIN 2.7 gm/dl (3.1-4.5); CREATININE 2.05 mg/dL (0.70-1.30); POTASSIUM 3.4 mmol/L (3.5-5.1)
[2018-03-25 13:41] LABS: PHOSPHOROUS 2.7 mg/dL (2.5-4.9)
[2018-03-25 16:00] VITALS: BP 157/77
[2018-03-25 20:00] VITALS: BP 157/78
[2018-03-26 00:37] VITALS: BP 140/68
[2018-03-26 06:02] LABS: BASO # 0.1 10*3/uL (0.0-0.1); BASO % 1.3 % (0.0-1.0); EOS # 0.3 10*3/uL (0.0-0.4); HEMATOCRIT 36.2 % (42.0-52.0); HEMOGLOBIN 12.4 g/dl (14.0-18.0); LYMPH # 1.5 10*3/uL (1.3-4.4); LYMPH % 16.8 % (27.0-41.0); MEAN CELL VOLUME 87.7 fl (80.0-94.0); MEAN CORPUSCULAR HGB CONC 34.3 g/dl (33.0-37.0); MEAN PLATELET VOLUME 12.9 fl (9.6-12.3); MONO # 0.7 10*3/uL (0.1-1.0); MONO % 7.5 % (3.0-9.0); NEUT # 6.4 10*3/uL (2.3-7.9); NEUT % 71.1 % (47.0-73.0); PLATELET COUNT AUTOMATED 163 10*3/uL (130-400); RED BLOOD COUNT 4.13 10*6/uL (4.50-5.90); RED CELL DISTRI WIDTH 17.1 % (0-14.5); WHITE BLOOD COUNT 8.9 10*3/uL (4.8-10.8)
[2018-03-26 06:21] LABS: ALBUMIN 2.5 gm/dl (3.1-4.5); CREATININE 2.8 mg/dL (0.70-1.30); POTASSIUM 3.5 mmol/L (3.5-5.1)
[2018-03-26 08:00] VITALS: BP 149/75
[2018-03-26 12:00] VITALS: BP 144/73
[2018-03-26 16:00] VITALS: BP 155/75
[2018-03-26 20:00] VITALS: BP 139/66
[2018-03-27] VITALS: BP 156/87
[2018-03-27 05:59] LABS: BASO # 0.1 10*3/uL (0.0-0.1); BASO % 1.4 % (0.0-1.0); EOS # 0.3 10*3/uL (0.0-0.4); EOS % 3.6 % (1.0-4.0); HEMATOCRIT 33.3 % (42.0-52.0); HEMOGLOBIN 11.4 g/dl (14.0-18.0); LYMPH # 1.7 10*3/uL (1.3-4.4); LYMPH % 20.7 % (27.0-41.0); MEAN CELL VOLUME 87.9 fl (80.0-94.0); MEAN CORPUSCULAR HGB 30.1 pg (27.0-31.0); MEAN CORPUSCULAR HGB CONC 34.2 g/dl (33.0-37.0); MEAN PLATELET VOLUME 12.8 fl (9.6-12.3); MONO # 0.6 10*3/uL (0.1-1.0); MONO % 7.5 % (3.0-9.0); NEUT # 5.4 10*3/uL (2.3-7.9); NEUT % 66.3 % (47.0-73.0); PLATELET COUNT AUTOMATED 167 10*3/uL (130-400); RED BLOOD COUNT 3.79 10*6/uL (4.50-5.90); RED CELL DISTRI WIDTH 16.9 % (0-14.5); WHITE BLOOD COUNT 8.1 10*3/uL (4.8-10.8)
[2018-03-27 06:25] LABS: ALBUMIN 2.4 gm/dl (3.1-4.5); CREATININE 3.31 mg/dL (0.70-1.30); PHOSPHOROUS 2.8 mg/dL (2.5-4.9); POTASSIUM 3.7 mmol/L (3.5-5.1)
[2018-03-27 08:00] VITALS: BP 153/76
[2018-03-27 12:00] VITALS: BP 148/72
[2018-03-27 16:00] VITALS: BP 136/75
[2018-03-27 20:00] VITALS: BP 133/77
[2018-03-28] VITALS: BP 140/62
[2018-03-28 06:31] LABS: BASO # 0.1 10*3/uL (0.0-0.1); BASO % 1.2 % (0.0-1.0); EOS # 0.2 10*3/uL (0.0-0.4); EOS % 2.6 % (1.0-4.0); HEMOGLOBIN 11.6 g/dl (14.0-18.0); LYMPH # 1.9 10*3/uL (1.3-4.4); LYMPH % 22.5 % (27.0-41.0); MEAN CELL VOLUME 87.6 fl (80.0-94.0); MEAN CORPUSCULAR HGB 29.9 pg (27.0-31.0); MEAN CORPUSCULAR HGB CONC 34.1 g/dl (33.0-37.0); MEAN PLATELET VOLUME 12.4 fl (9.6-12.3); MONO # 0.6 10*3/uL (0.1-1.0); MONO % 6.9 % (3.0-9.0); NEUT # 5.7 10*3/uL (2.3-7.9); NEUT % 66.2 % (47.0-73.0); PLATELET COUNT AUTOMATED 197 10*3/uL (130-400); RED BLOOD COUNT 3.88 10*6/uL (4.50-5.90); RED CELL DISTRI WIDTH 16.6 % (0-14.5); WHITE BLOOD COUNT 8.6 10*3/uL (4.8-10.8)
[2018-03-28 06:39] LABS: ALBUMIN 2.5 gm/dl (3.1-4.5); CREATININE 3.85 mg/dL (0.70-1.30); PHOSPHOROUS 3.5 mg/dL (2.5-4.9); POTASSIUM 4.2 mmol/L (3.5-5.1)
[2018-03-28 08:00] VITALS: BP 125/69
[2018-03-28 12:00] VITALS: BP 156/79
[2018-03-28 16:00] VITALS: BP 140/73
[2018-03-28 20:00] VITALS: BP 152/83
[2018-03-29] VITALS: BP 160/79
[2018-03-29 05:52] LABS: BASO # 0.1 10*3/uL (0.0-0.1); EOS # 0.2 10*3/uL (0.0-0.4); EOS % 2.4 % (1.0-4.0); HEMATOCRIT 34.5 % (42.0-52.0); HEMOGLOBIN 11.6 g/dl (14.0-18.0); LYMPH % 22.9 % (27.0-41.0); MEAN CORPUSCULAR HGB 29.6 pg (27.0-31.0); MEAN CORPUSCULAR HGB CONC 33.6 g/dl (33.0-37.0); MEAN PLATELET VOLUME 12.4 fl (9.6-12.3); MONO % 11.4 % (3.0-9.0); NEUT # 5.4 10*3/uL (2.3-7.9); PLATELET COUNT AUTOMATED 205 10*3/uL (130-400); RED BLOOD COUNT 3.92 10*6/uL (4.50-5.90); RED CELL DISTRI WIDTH 16.4 % (0-14.5); WHITE BLOOD COUNT 8.7 10*3/uL (4.8-10.8)
[2018-03-29 06:26] LABS: ALBUMIN 2.6 gm/dl (3.1-4.5); CREATININE 3.17 mg/dL (0.70-1.30); PHOSPHOROUS 2.9 mg/dL (2.5-4.9); POTASSIUM 3.9 mmol/L (3.5-5.1)
[2018-03-29 08:00] VITALS: BP 170/82
[2018-03-29 12:00] VITALS: BP 172/70
[2018-03-29 16:00] VITALS: BP 146/77
[2018-04-26] MEDS ORDERED: NATURE'S BLEND F1 MG PO (09:23)
[2018-04-26] MEDS ORDERED: NEURONTIN100 MG PO (09:24)
[2018-04-26] MEDS ORDERED: TRAZODONE100 MG PO (09:25)
[2018-04-26] MEDS ORDERED: PRILOSEC20 M1 PO (09:26)
[2018-04-26] MEDS ORDERED: LIPITOR20 MG PO (09:27)
[2018-05-03] MEDS ORDERED: HYDROCODONE AC PO (18:25)
== END 2018-03-29 20:13 | disposition other institution (70) | DRG 640 ==
LOC: ED 14:06 → EDHOLD 16:36 → 4E 16:36
PROVIDERS: Internal Medicine; Internal Medicine Nephrology; Physician Assistant; Student in an Organized Health Care Education/Training Program
PROC: 5A1D70Z Performance of Urinary Filtration, Intermittent, Less than 6 Hours Per Day (ICD-10-PCS; principal; 2018-03-25)
PROC: 5A1D70Z Performance of Urinary Filtration, Intermittent, Less than 6 Hours Per Day (ICD-10-PCS; 2018-03-28)
DX: E87.1 Hypo-osmolality and hyponatremia (principal); N18.6 End stage renal disease; E43 Unspecified severe protein-calorie malnutrition; I50.32 Chronic diastolic (congestive) heart failure; I13.2 Hypertensive heart and chronic kidney disease with heart failure and with stage 5 chronic kidney disease, or end stage renal disease; Z68.1 Body mass index [BMI] 19.9 or less, adult; R53.1 Weakness; D72.829 Elevated white blood cell count, unspecified; D63.1 Anemia in chronic kidney disease; M50.322 Other cervical disc degeneration at C5-C6 level; F32.9 Major depressive disorder, single episode, unspecified; F10.10 Alcohol abuse, uncomplicated; E78.2 Mixed hyperlipidemia; E55.9 Vitamin D deficiency, unspecified; I95.1 Orthostatic hypotension; R27.0 Ataxia, unspecified; R13.10 Dysphagia, unspecified; W18.39XA Other fall on same level, initial encounter; Y93.89 Activity, other specified; Y92.098 Other place in other non-institutional residence as the place of occurrence of the external cause; Y99.8 Other external cause status; Z72.0 Tobacco use; Z86.73 Personal history of transient ischemic attack (TIA), and cerebral infarction without residual deficits; Z71.6 Tobacco abuse counseling; Z90.49 Acquired absence of other specified parts of digestive tract; Z90.81 Acquired absence of spleen; Z82.49 Family history of ischemic heart disease and other diseases of the circulatory system; Z83.3 Family history of diabetes mellitus; Z82.3 Family history of stroke; Z85.01 Personal history of malignant neoplasm of esophagus; Z87.11 Personal history of peptic ulcer disease; Z79.899 Other long term (current) drug therapy

== ENCOUNTER → 2018-04-20 | Outpatient (CLI) | payer OTHER ==
[~2018-04-20] MED LIST changes: +HYDROCODONE AC PO; +LIPITOR20 MG PO; +PRILOSEC20 M1 PO; +TRAZODONE100 MG PO
== END | disposition home or self-care (01) ==
LOC: RESCLI 00:52
DX: I12.0 Hypertensive chronic kidney disease with stage 5 chronic kidney disease or end stage renal disease (principal); N18.6 End stage renal disease; E78.5 Hyperlipidemia, unspecified; E55.9 Vitamin D deficiency, unspecified; G47.00 Insomnia, unspecified; F32.9 Major depressive disorder, single episode, unspecified; K27.9 Peptic ulcer, site unspecified, unspecified as acute or chronic, without hemorrhage or perforation; K59.00 Constipation, unspecified; R29.6 Repeated falls; J44.9 Chronic obstructive pulmonary disease, unspecified; G62.9 Polyneuropathy, unspecified; F17.200 Nicotine dependence, unspecified, uncomplicated; E53.8 Deficiency of other specified B group vitamins; R11.0 Nausea; Z79.899 Other long term (current) drug therapy; Z99.2 Dependence on renal dialysis; Z88.8 Allergy status to other drugs, medicaments and biological substances